=== PATIENT | female | born 1945 | race Caucasian/White ===

== ENCOUNTER 2021-03-10 21:26 | Inpatient (IN) | payer MEDICARE, BC ==
[2021-03-10] MEDS ORDERED: Ondansetron 4 MG/2 ML SDV IVPUSH ONE (21:44)
[2021-03-10] MEDS ORDERED: Sodium Chloride 0.9% 1,000 ML IV STA (21:44)
[2021-03-10] MEDS ORDERED: Sodium Chloride 0.9% 10 ML Syringe FLUSH PRN (21:44)
[2021-03-10] MEDS ORDERED: HYDROmorphone 0.5 MG/0.5 ML Syringe IVPUSH ONE ×2 (21:45→22:43)
--- NOTE | 2021-03-10 21:51 | EDM.PDOC ---
ED HPI GENERAL MEDICAL PROBLEM - General Chief Complaint: Abdominal Pain Stated Complaint: ABD PAIN Time Seen by Provider: 03/10/21 21:33 Source of Information: Reports: Patient History Limitations: Reports: No Limitations - History of Present Illness INITIAL COMMENTS - FREE TEXT/NARRATIVE: The patient presents with generalized abdominal pain, nausea and vomiting. This started this morning. The pain is constant. She has not been able to keep anything down. She has no diarrhea or dysuria. She says she feels warm. She has no cough or chest pain. She does have some shortness of breath. She has a history of COPD. She had a hysterectomy years ago. She still has her appendix and gallbladder. She did not eat any bad food and she has not been around anyone who is sick. Onset: Gradual Duration: Hour(s): Location: Reports: Abdomen Quality: Reports: Sharp Severity: Moderate Improves with: Reports: None Worsens with: Reports: None Associated Symptoms: Reports: Fever/Chills, Nausea/Vomiting, Shortness of Breath. Denies: Chest Pain, Cough, Headaches Abdomen Pain Score (Numeric/FACES): 9 - Related Data Allergies Allergy/AdvReac Type Severity Reaction Status Date / Time No Known Allergies Allergy Verified 03/10/21 21:36 Home Meds: Home Meds Acetaminophen/HYDROcodone [[place] 325-5 MG] 1 tab PO BEDTIME PRN #10 tablet 05/03/14 [Rx] Budesonide/Formoterol Fumarate [Symbicort 80-4.5 Mcg Inhaler] 0 gm IH BID 05/03/14 [History] Celecoxib [CeleBREX] 200 mg PO ASDIRECTED PRN 05/03/14 [History] Indomethacin 25 mg PO DAILY 05/03/14 [History] Sertraline [Zoloft] 50 mg PO DAILY 05/03/14 [History] allopurinoL [Zyloprim] 300 mg PO DAILY 05/03/14 [History] Past Medical History Respiratory History: Reports: COPD Musculoskeletal History: Reports: Arthritis Endocrine/Metabolic History: Reports: Hypothyroidism - Past Surgical History GI Surgical History: Reports: Hernia Repair/Other Female Surgical History: Reports: Hysterectomy Social & Family History - Tobacco Use Tobacco Use Status *Q: Former Tobacco User Used Tobacco, but Quit: Yes Month/Year Tobacco Last Used: 10 years ago - Recreational Drug Use Recreational Drug Use: No ED ROS GENERAL - Review of Systems Review Of Systems: See Below Constitutional: Reports: Fever. Denies: Chills HEENT: Reports: No Symptoms Respiratory: Reports: Shortness of Breath. Denies: Cough Cardiovascular: Reports: No Symptoms Endocrine: Reports: No Symptoms GI/Abdominal: Reports: Abdominal Pain, Nausea, Vomiting. Denies: Diarrhea : Reports: No Symptoms Musculoskeletal: Reports: No Symptoms ED EXAM, GI/ABD - Physical Exam Exam: See Below Exam Limited By: No Limitations General Appearance: Alert, No Apparent Distress Ears: Normal External Exam Nose: Normal Inspection Head: Atraumatic, Normocephalic Neck: Normal Inspection Respiratory/Chest: No Respiratory Distress, Lungs Clear, Normal Breath Sounds Cardiovascular: Regular Rate, Rhythm, No Edema, No Murmur GI/Abdominal Exam: Soft, No Organomegaly, No Mass, Tender (Moderate generalized tenderness), Abnormal Bowel Sounds (diminished) Course - Vital Signs Last Recorded V/S: Last Vital Signs Temp 96.3 F L 03/10/21 21:32 Pulse 95 03/10/21 21:32 Resp 16 03/10/21 21:32 BP 178/86 H 03/10/21 21:32 Pulse Ox 90 L 03/10/21 21:32 - Orders/Labs/Meds Orders: Active Orders 24 hr Category Date Time Status EKG Documentation Completion [RC] ASDIRECTED Care 03/10/21 23:51 Active Gastrointestinal Tube Mgmt [RC] ASDIRECTED Care 03/10/21 23:41 Active Oxygen Therapy Adult [Oxygen Therapy, ED] [RC] Care 03/10/21 22:52 Active ASDIRECTED Peripheral IV Care [RC] . DIRECTED Care 03/10/21 21:45 Active Abdomen 1V Upright [CR] Stat Exams 03/10/21 23:41 Ordered Abdomen Pelvis w Cont [CT] Stat Exams 03/10/21 21:44 Taken Chest 1V Frontal [CR] Stat Exams 03/10/21 23:41 Ordered CORONAVIRUS COVID-19 WOO [MOLEC] Stat Lab 03/10/21 23:21 Received UA W/MICROSCOPIC [URIN] Stat Lab 03/10/21 21:44 Ordered Piperacillin/Tazobactam [Piperacil-Tazobact] 4.5 gm Med 03/10/21 23:47 Active Sodium Chloride 0.9% [Normal Saline] 100 ml IV ONETIME Sodium Chloride 0.9% [Normal Saline] 100 ml Med 03/10/21 22:00 Active IV ASDIRECTED Sodium Chloride 0.9% [Saline Flush] Med 03/10/21 21:44 Active 10 ml FLUSH ASDIRECTED PRN Sodium Chloride 0.9% [Saline Flush] Med 03/10/21 22:00 Active 10 ml FLUSH BOLUS ED Antiemetic Medication Reflex [OM.PC] Stat Oth 03/10/21 21:44 Ordered NG [Nasogastric Orogastric Tube Insertion] [OM.PC] Oth 03/10/21 23:41 Ordered Routine Peripheral IV Insertion Adult [OM.PC] Stat Oth 03/10/21 21:44 Ordered EKG 12 Lead [EK] Stat Ther 03/10/21 23:51 Ordered Medication Orders Sodium Chloride (Normal Saline) 100 mls @ 60 drops/hr IV ASDIRECTED MITCHELL Last Admin: 03/10/21 23:30 Dose: 60 drops/hr Documented by: ANNMARIE Piperacillin Sod/Tazobactam (Sod 4.5 gm/ Sodium Chloride) 100 mls @ 200 mls/hr IV ONETIME ONE Stop: 03/11/21 00:16 Sodium Chloride (Sodium Chloride 0.9% 10 Ml Syringe) 10 ml FLUSH ASDIRECTED PRN PRN Reason: Keep Vein Open Last Admin: 03/10/21 21:57 Dose: 10 ml Documented by: ANTONIO Sodium Chloride (Sodium Chloride 0.9% 10 Ml Syringe) 10 ml FLUSH BOLUS [facility] Last Admin: 03/10/21 23:30 Dose: 10 ml Documented by: ANNMARIE Labs: Laboratory Tests 03/10/21 03/10/21 03/10/21 Range/Units 22:00 22:00 22:00 WBC 16.02 H (3.98-10.04) K/mm3 RBC 4.99 (3.98-5.22) M/mm3 Hgb 15.9 H (11.2-15.7) gm/dl Hct 47.7 H (34.1-44.9) % MCV 95.6 H (79.4-94.8) fl MCH 31.9 (25.6-32.2) pg MCHC 33.3 (32.2-35.5) g/dl RDW Std Deviation 47.7 H (36.4-46.3) fL Plt Count 353 (182-369) K/mm3 MPV 9.7 (9.4-12.3) fl Neut % (Auto) 87.3 H (34.0-71.1) % Lymph % (Auto) 4.4 L (19.3-51.7) % [place] % (Auto) 7.9 (4.7-12.5) % Eos % (Auto) 0.1 L (0.7-5.8) Baso % (Auto) 0.1 (0.1-1.2) % Neut # (Auto) 13.99 H (1.56-6.13) K/mm3 Lymph # (Auto) 0.70 L (1.18-3.74) K/mm3 [place] # (Auto) 1.27 H (0.24-0.36) K/mm3 Eos # (Auto) 0.01 L (0.04-0.36) K/mm3 Baso # (Auto) 0.01 (0.01-0.08) K/mm3 Manual Slide Review Abnormal smear Sodium 137 (136-145) mEq/L Potassium 3.7 (3.5-5.1) mEq/L Chloride 96 L (98-107) mEq/L Carbon Dioxide 25 (21-32) mEq/L Anion Gap 19.7 H (5-15) BUN 13 (7-18) mg/dL Creatinine 0.9 (0.55-1.02) mg/dL Est Cr Clr Drug Dosing 38.79 mL/min Estimated GFR (MDRD) > 60 (>60) mL/min BUN/Creatinine Ratio 14.4 (14-18) Glucose 178 H (70-99) mg/dL Calcium 9.4 (8.5-10.1) mg/dL Total Bilirubin 0.8 (0.2-1.0) mg/dL AST 48 H (15-37) U/L ALT 47 (14-59) U/L Alkaline Phosphatase 75 (46-116) U/L Total Protein 7.5 (6.4-8.2) g/dl Albumin 4.2 (3.4-5.0) g/dl Globulin 3.3 gm/dL Albumin/Globulin Ratio 1.3 (1-2) Lipase 1332 H (73-393) U/L Ethyl Alcohol 0.00 (0.00) gm% Meds: Medications Generic Name Dose Route Start Last Admin Trade Name Freq PRN Reason Stop Dose Admin Sodium Chloride 100 mls @ 60 drops/hr 03/10/21 22:00 03/10/21 23:30 Normal Saline IV 60 drops/hr ASDIRECTED MITCHELL Administration Piperacillin Sod/Tazobactam 100 mls @ 200 mls/hr 03/10/21 23:47 Sod 4.5 gm/ Sodium Chloride IV 03/11/21 00:16 ONETIME ONE Sodium Chloride 10 ml 03/10/21 21:44 03/10/21 21:57 Sodium Chloride 0.9% 10 Ml Syringe FLUSH 10 ml ASDIRECTED PRN Administration Keep Vein Open Sodium Chloride 10 ml 03/10/21 22:00 03/10/21 23:30 Sodium Chloride 0.9% 10 Ml Syringe FLUSH 10 ml BOLUS MITCHELL Administration Discontinued Medications Generic Name Dose Route Start Last Admin Trade Name Antwanq PRN Reason Stop Dose Admin Hydromorphone HCl 0.5 mg 03/10/21 21:45 03/10/21 21:57 Hydromorphone 0.5 Mg/0.5 Ml Syringe IVPUSH 03/10/21 21:46 0.5 mg ONETIME ONE Administration Hydromorphone HCl 0.5 mg 03/10/21 22:43 03/10/21 22:51 Hydromorphone 0.5 Mg/0.5 Ml Syringe IVPUSH 03/10/21 22:44 0.5 mg ONETIME ONE Administration Sodium Chloride 1,000 mls @ 1,000 mls/hr 03/10/21 21:44 03/10/21 21:56 Normal Saline IV 03/10/21 22:43 1,000 mls/hr .BOLUS STA Administration Iopamidol 100 ml 03/10/21 21:53 03/10/21 23:30 Iopamidol 612 Mg/Ml 100 Ml Bottle IVPUSH 03/10/21 21:54 100 ml ONETIME ONE Administration Ondansetron HCl 4 mg 03/10/21 21:44 03/10/21 21:56 Ondansetron 4 Mg/2 Ml Sdv IVPUSH 03/10/21 21:45 4 mg ONETIME ONE Administration - Re-Assessments/Exams Free Text/Narrative Re-Assessment/Exam: 03/10/21 21:51 I ordered an IV NS 500mL bolus, zofran 4mg IV, dilaudid 0.5mg IV, labs, UA and a CT of her abdomen and pelvis with IV and oral contrast. 03/10/21 22:50 Her WBC was elevated at 16.02. Her anion gap was elevated at 19.7. Her glucose was elevated at 178. Her AST is elevated at 48. Her lipase is elevated at 1332. She has more pain so I ordered dilaudid 0.5mg IV. 03/10/21 23:53 Her ETOH is 0. Her CT shows findings most consistent with a mid gut volvulus. Decreased enhancement of the wall of the cecum concerning for early ischemia. Cirrhosis. Diverticulosis without diverticulitis. I called Dr Tafoya and he will come see the patient to take her to the OR. He requested antibiotics so I ordered zosyn 4.5grams IV. Departure - Departure Time of Disposition: 23:55 Disposition: DC/Tfer to [facility] Condition: Serious Clinical Impression: Volvulus of ascending colon Pancreatitis Qualifiers: Chronicity: acute Pancreatitis type: alcohol induced Acute pancreatitis complication: no infection or necrosis Qualified Code(s): K85.20 - Alcohol induced acute pancreatitis without necrosis or infection COPD (chronic obstructive pulmonary disease) Qualifiers: COPD type: chronic bronchitis Chronic bronchitis type: simple Qualified Code(s): J41.0 - Simple chronic bronchitis - Discharge Information Referrals: Padmini Soto MD [Primary Care Provider] - Forms: ED Department Discharge Sepsis Event Note (ED) - Evaluation Sepsis Screening Result: No Definite Risk - Focused Exam Vital Signs: Vital Signs Temp Pulse Resp BP Pulse Ox 03/10/21 21:32 96.3 F L 95 16 178/86 H 90 L - My Orders Last 24 Hours: My Active Orders 03/10/21 21:44 Abdomen Pelvis w Cont [CT] Stat UA W/MICROSCOPIC [URIN] Stat Sodium Chloride 0.9% [Saline Flush] 10 ml FLUSH ASDIRECTED PRN ED Antiemetic Medication Reflex [OM.PC] Stat Peripheral IV Insertion Adult [OM.PC] Stat 03/10/21 21:45 Peripheral IV Care [RC] . DIRECTED 03/10/21 22:00 Sodium Chloride 0.9% [Normal Saline] 100 ml IV ASDIRECTED Sodium Chloride 0.9% [Saline Flush] 10 ml FLUSH BOLUS 03/10/21 22:52 Oxygen Therapy Adult [Oxygen Therapy, ED] [RC] ASDIRECTED 03/10/21 23:21 CORONAVIRUS COVID-19 WOO [MOLEC] Stat 03/10/21 23:41 Gastrointestinal Tube Mgmt [RC] ASDIRECTED Abdomen 1V Upright [CR] Stat Chest 1V Frontal [CR] Stat NG [Nasogastric Orogastric Tube Insertion] [OM.PC] Routine 03/10/21 23:47 Piperacillin/Tazobactam [Piperacil-Tazobact] 4.5 gm Sodium Chloride 0.9% [Normal Saline] 100 ml IV ONETIME 03/10/21 23:51 EKG Documentation Completion [RC] ASDIRECTED EKG 12 Lead [EK] Stat - Assessment/Plan Last 24 Hours: My Active Orders 03/10/21 21:44 Abdomen Pelvis w Cont [CT] Stat UA W/MICROSCOPIC [URIN] Stat Sodium Chloride 0.9% [Saline Flush] 10 ml FLUSH ASDIRECTED PRN ED Antiemetic Medication Reflex [OM.PC] Stat Peripheral IV Insertion Adult [OM.PC] Stat 03/10/21 21:45 Peripheral IV Care [RC] . DIRECTED 03/10/21 22:00 Sodium Chloride 0.9% [Normal Saline] 100 ml IV ASDIRECTED Sodium Chloride 0.9% [Saline Flush] 10 ml FLUSH BOLUS 03/10/21 22:52 Oxygen Therapy Adult [Oxygen Therapy, ED] [RC] ASDIRECTED 03/10/21 23:21 CORONAVIRUS COVID-19 WOO [MOLEC] Stat 03/10/21 23:41 Gastrointestinal Tube Mgmt [RC] ASDIRECTED Abdomen 1V Upright [CR] Stat Chest 1V Frontal [CR] Stat NG [Nasogastric Orogastric Tube Insertion] [OM.PC] Routine 03/10/21 23:47 Piperacillin/Tazobactam [Piperacil-Tazobact] 4.5 gm Sodium Chloride 0.9% [Normal Saline] 100 ml IV ONETIME 03/10/21 23:51 EKG Documentation Completion [RC] ASDIRECTED EKG 12 Lead [EK] Stat
[2021-03-10] MEDS ORDERED: Iopamidol 612 MG/ML 100 ML Bottle IVPUSH ONE (21:53)
[2021-03-10] MEDS ORDERED: Sodium Chloride 0.9% 100 ML IV SCH (22:00)
[2021-03-10] MEDS ORDERED: Sodium Chloride 0.9% 10 ML Syringe FLUSH SCH (22:00)
[2021-03-10] MEDS ORDERED: Piperacillin/Tazobactam 4.5 GM in Sodium Chloride 0.9% 100 ML IV ONE (23:47)
[2021-03-11] MEDS ORDERED: Albuterol 0.083% 2.5 MG/3 ML Neb Soln NEB ONE (00:11)
--- NOTE | 2021-03-11 00:13 | PCM.PREANE ---
Preanesthetic Assessment - Procedure Proposed Procedure: Exploratory laparotomy, possible bowel resection - Anesthesia/Transfusion/Family Hx Anesthesia History: Prior Anesthesia Without Reaction Family History of Anesthesia Reaction: No Transfusion History: No Prior Transfusion(s) Intubation History: Unknown - Review of Systems General: No Symptoms Pulmonary: No Symptoms (COPD/quit smoking:), Shortness of Breath, Cough (COPD) Cardiovascular: Palpitations, Dyspnea on Exertion Gastrointestinal: No Symptoms (History of pancreatitis), Abdominal Pain (5/10 abdominal pain), Nausea, Vomiting Neurological: No Symptoms Other: Reports: None, Easy Bruising, Thyroid Problems (history of hypothyroid), Depression - Physical Assessment NPO Status Date: 03/10/21 NPO Status Time: 11:30 Vital Signs: Last Vital Signs Temp 35.7 C L 03/10/21 21:32 Pulse 95 03/10/21 21:32 Resp 16 03/10/21 21:32 BP 178/86 H 03/10/21 21:32 Pulse Ox 90 L 03/10/21 21:32 Height: 1.52 m Weight: 50.802 kg ASA Class: 2E Mental Status: Alert & Oriented x3 Airway Class: Mallampati = 2 Dentition: Reports: Dentures Thyro-Mental Finger Breadths: 3 Mouth Opening Finger Breadths: 3 ROM/Head Extension: Full Lungs: Clear to Auscultation, Normal Respiratory Effort Cardiovascular: Regular Rate, Regular Rhythm, No Murmurs - Lab Values: Laboratory Last Values WBC 16.02 K/mm3 (3.98-10.04) H 03/10/21 22:00 RBC 4.99 M/mm3 (3.98-5.22) 03/10/21 22:00 Hgb 15.9 gm/dl (11.2-15.7) H 03/10/21 22:00 Hct 47.7 % (34.1-44.9) H 03/10/21 22:00 MCV 95.6 fl (79.4-94.8) H 03/10/21 22:00 MCH 31.9 pg (25.6-32.2) 03/10/21 22:00 MCHC 33.3 g/dl (32.2-35.5) 03/10/21 22:00 RDW Std Deviation 47.7 fL (36.4-46.3) H 03/10/21 22:00 Plt Count 353 K/mm3 (182-369) 03/10/21 22:00 MPV 9.7 fl (9.4-12.3) 03/10/21 22:00 Neut % (Auto) 87.3 % (34.0-71.1) H 03/10/21 22:00 Lymph % (Auto) 4.4 % (19.3-51.7) L 03/10/21 22:00 [place] % (Auto) 7.9 % (4.7-12.5) 03/10/21 22:00 Eos % (Auto) 0.1 (0.7-5.8) L 03/10/21 22:00 Baso % (Auto) 0.1 % (0.1-1.2) 03/10/21 22:00 Neut # (Auto) 13.99 K/mm3 (1.56-6.13) H 03/10/21 22:00 Lymph # (Auto) 0.70 K/mm3 (1.18-3.74) L 03/10/21 22:00 [place] # (Auto) 1.27 K/mm3 (0.24-0.36) H 03/10/21 22:00 Eos # (Auto) 0.01 K/mm3 (0.04-0.36) L 03/10/21 22:00 Baso # (Auto) 0.01 K/mm3 (0.01-0.08) 03/10/21 22:00 Manual Slide Review Abnormal smear 03/10/21 22:00 Sodium 137 mEq/L (136-145) 03/10/21 22:00 Potassium 3.7 mEq/L (3.5-5.1) 03/10/21 22:00 Chloride 96 mEq/L (98-107) L 03/10/21 22:00 Carbon Dioxide 25 mEq/L (21-32) 03/10/21 22:00 Anion Gap 19.7 (5-15) H 03/10/21 22:00 BUN 13 mg/dL (7-18) 03/10/21 22:00 Creatinine 0.9 mg/dL (0.55-1.02) 03/10/21 22:00 Est Cr Clr Drug Dosing 38.79 mL/min 03/10/21 22:00 Estimated GFR (MDRD) > 60 mL/min (>60) 03/10/21 22:00 BUN/Creatinine Ratio 14.4 (14-18) 03/10/21 22:00 Glucose 178 mg/dL (70-99) H 03/10/21 22:00 Calcium 9.4 mg/dL (8.5-10.1) 03/10/21 22:00 Total Bilirubin 0.8 mg/dL (0.2-1.0) 03/10/21 22:00 AST 48 U/L (15-37) H 03/10/21 22:00 ALT 47 U/L (14-59) 03/10/21 22:00 Alkaline Phosphatase 75 U/L (46-116) 03/10/21 22:00 Total Protein 7.5 g/dl (6.4-8.2) 03/10/21 22:00 Albumin 4.2 g/dl (3.4-5.0) 03/10/21 22:00 Globulin 3.3 gm/dL 03/10/21 22:00 Albumin/Globulin Ratio 1.3 (1-2) 03/10/21 22:00 Lipase 1332 U/L (73-393) H 03/10/21 22:00 Ethyl Alcohol 0.00 gm% (0.00) 03/10/21 22:00 Above labs reviewed and noted and within acceptable ranges to proceed with surgery. - Imaging/EKG Impressions: EKG:ST wptn=964, probable LAE, minimal st depression lateral leads CXR: - Allergies Allergies/Adverse Reactions: Allergies Allergy/AdvReac Type Severity Reaction Status Date / Time No Known Allergies Allergy Verified 03/10/21 21:36 - Anesthesia Plan Pre-Op Medication Ordered: None - Acknowledgements Anesthesia Type Planned: General Anesthesia Pt an Appropriate Candidate for the Planned Anesthesia: Yes Alternatives and Risks of Anesthesia Discussed w Pt/Guardian: Yes Pt/Guardian Understands and Agrees with Anesthesia Plan: Yes PreAnesthesia Questionnaire Respiratory History: Reports: COPD Musculoskeletal History: Reports: Arthritis Endocrine/Metabolic History: Reports: Hypothyroidism - Past Surgical History GI Surgical History: Reports: Hernia Repair/Other Female Surgical History: Reports: Hysterectomy - SUBSTANCE USE Tobacco Use Status *Q: Former Tobacco User Recreational Drug Use History: No - HOME MEDS Home Medications: Home Meds allopurinoL [Zyloprim] 100 mg PO DAILY 05/03/14 [History] Venlafaxine HCl [Venlafaxine ER] 75 mg PO DAILY 03/11/21 [History] - CURRENT (IN HOUSE) MEDS Current Meds: Current Medications Sodium Chloride (Normal Saline) 100 mls @ 60 drops/hr IV ASDIRECTED MITCHELL Last Admin: 03/10/21 23:30 Dose: 60 drops/hr Documented by: Piperacillin Sod/Tazobactam (Sod 4.5 gm/ Sodium Chloride) 100 mls @ 200 mls/hr IV ONETIME ONE Stop: 03/11/21 00:16 Last Admin: 03/11/21 00:00 Dose: 200 mls/hr Documented by: Sodium Chloride (Sodium Chloride 0.9% 10 Ml Syringe) 10 ml FLUSH ASDIRECTED PRN PRN Reason: Keep Vein Open Last Admin: 03/10/21 21:57 Dose: 10 ml Documented by: Sodium Chloride (Sodium Chloride 0.9% 10 Ml Syringe) 10 ml FLUSH BOLUS MITCHELL Last Admin: 03/10/21 23:30 Dose: 10 ml Documented by: Discontinued Medications Hydromorphone HCl (Hydromorphone 0.5 Mg/0.5 Ml Syringe) 0.5 mg IVPUSH ONETIME ONE Stop: 03/10/21 21:46 Last Admin: 03/10/21 21:57 Dose: 0.5 mg Documented by: Hydromorphone HCl (Hydromorphone 0.5 Mg/0.5 Ml Syringe) 0.5 mg IVPUSH ONETIME ONE Stop: 03/10/21 22:44 Last Admin: 03/10/21 22:51 Dose: 0.5 mg Documented by: Sodium Chloride (Normal Saline) 1,000 mls @ 1,000 mls/hr IV .BOLUS STA Stop: 03/10/21 22:43 Last Admin: 03/10/21 21:56 Dose: 1,000 mls/hr Documented by: Iopamidol (Iopamidol 612 Mg/Ml 100 Ml Bottle) 100 ml IVPUSH ONETIME ONE Stop: 03/10/21 21:54 Last Admin: 03/10/21 23:30 Dose: 100 ml Documented by: Ondansetron HCl (Ondansetron 4 Mg/2 Ml Sdv) 4 mg IVPUSH ONETIME ONE Stop: 03/10/21 21:45 Last Admin: 03/10/21 21:56 Dose: 4 mg Documented by:
[2021-03-11] MEDS ORDERED: Rocuronium 50 MG/5 ML Vial ONE (00:32)
[2021-03-11] MEDS ORDERED: Lidocaine 1% 4 ML ONE (00:32)
[2021-03-11] MEDS ORDERED: Propofol 200 MG/20 ML SDV ONE (00:32)
[2021-03-11] MEDS ORDERED: Dexamethasone 4 MG/ML 5 ML MDV ONE (00:32)
[2021-03-11] MEDS ORDERED: Ondansetron 4 MG/2 ML SDV ONE (00:32)
[2021-03-11] MEDS ORDERED: Lactated Ringers 2,000 ML ONE (00:32)
[2021-03-11] MEDS ORDERED: fentaNYL 250 MCG/5 ML SDV ONE (00:33)
[2021-03-11] MEDS ORDERED: Bupivacaine 0.5%/EPINEPHrine 1:200,000 50 ML MDV ONE (00:45)
[2021-03-11] MEDS ORDERED: Lidocaine 1% with EPINEPHrine 1:100,000 10 ML MDV ONE (00:45)
--- NOTE | 2021-03-11 00:48 | PCM.HP.2 ---
H&P History of Present Illness - General Date of Service: 03/11/21 Admit Problem/Dx: Admission Diagnosis/Problem Admission Diagnosis/Problem Volvulus of colon Source of Information: Patient History Limitations: Reports: No Limitations - History of Present Illness Initial Comments - Free Text/Narative: Patient was doing well until yesterday afternoon about 2Pm when she started having abdominal cramping. The pain was diffuse, and kept getting worse. Then she became nauseated and started to vomit. She felt quite bloated. This is what prompted her to come to the emergence department. She had a small BM today. She quit smoking 10 yrs ago but comsumes about 4 shots of alcohol daily. She reports that her last drink was Thursday. She has no tremors at this time. She reports t hat she has COPD but able to do house chores, walking without problems. has two inhalers. Has bilateral inguinal hernia repairs in the past as well as C/sections. She also had an epigastric hernia repair. Onset of Symptoms: Reports: Sudden Duration of Symptoms: Reports: Hour(s): (10), Constant, Getting Worse Quality: Reports: Ache Severity: Severe Improves with: Reports: None Worsens with: Reports: None Abdomen Pain Score (Numeric/FACES): 9 - Related Data Allergies/Adverse Reactions: Allergies Allergy/AdvReac Type Severity Reaction Status Date / Time No Known Allergies Allergy Verified 03/10/21 21:36 Home Medications: Home Meds allopurinoL [Zyloprim] 100 mg PO DAILY 05/03/14 [History] Past Medical History Respiratory History: Reports: COPD Musculoskeletal History: Reports: Arthritis Endocrine/Metabolic History: Reports: Hypothyroidism - Past Surgical History GI Surgical History: Reports: Hernia Repair/Other Female Surgical History: Reports: Hysterectomy Social & Family History - Tobacco Use Tobacco Use Status *Q: Former Tobacco User Used Tobacco, but Quit: Yes Month/Year Tobacco Last Used: 10 years ago - Recreational Drug Use Recreational Drug Use: No H&P Review of Systems - Review of Systems: Review Of Systems: See Below General: Reports: No Symptoms HEENT: Reports: No Symptoms Pulmonary: Reports: No Symptoms Cardiovascular: Reports: No Symptoms Gastrointestinal: Reports: Abdominal Pain Genitourinary: Reports: No Symptoms Musculoskeletal: Reports: No Symptoms, Joint Pain (due to gout) Skin: Reports: No Symptoms Exam - Exam Exam: See Below - Vital Signs Vital Signs: Last Vital Signs Temp 96.3 F L 03/10/21 21:32 Pulse 95 03/10/21 21:32 Resp 16 03/10/21 21:32 BP 178/86 H 03/10/21 21:32 Pulse Ox 89 L 03/11/21 00:24 Weight: 50.802 kg - Exam General: Alert, Oriented, Cooperative Lungs: Clear to Auscultation, Normal Respiratory Effort Cardiovascular: Regular Rate, Regular Rhythm, Normal S1, Normal S2 GI/Abdominal Exam: Distended, Tender, Other (tympanic) - Patient Data Lab Results Last 24 hrs: Laboratory Results - last 24 hr 03/10/21 03/10/21 03/10/21 Range/Units 22:00 22:00 22:00 WBC 16.02 H (3.98-10.04) K/mm3 RBC 4.99 (3.98-5.22) M/mm3 Hgb 15.9 H (11.2-15.7) gm/dl Hct 47.7 H (34.1-44.9) % MCV 95.6 H (79.4-94.8) fl MCH 31.9 (25.6-32.2) pg MCHC 33.3 (32.2-35.5) g/dl RDW Std Deviation 47.7 H (36.4-46.3) fL Plt Count 353 (182-369) K/mm3 MPV 9.7 (9.4-12.3) fl Neut % (Auto) 87.3 H (34.0-71.1) % Lymph % (Auto) 4.4 L (19.3-51.7) % Shannon % (Auto) 7.9 (4.7-12.5) % Eos % (Auto) 0.1 L (0.7-5.8) Baso % (Auto) 0.1 (0.1-1.2) % Neut # (Auto) 13.99 H (1.56-6.13) K/mm3 Lymph # (Auto) 0.70 L (1.18-3.74) K/mm3 Shannon # (Auto) 1.27 H (0.24-0.36) K/mm3 Eos # (Auto) 0.01 L (0.04-0.36) K/mm3 Baso # (Auto) 0.01 (0.01-0.08) K/mm3 Manual Slide Review Abnormal smear Sodium 137 (136-145) mEq/L Potassium 3.7 (3.5-5.1) mEq/L Chloride 96 L (98-107) mEq/L Carbon Dioxide 25 (21-32) mEq/L Anion Gap 19.7 H (5-15) BUN 13 (7-18) mg/dL Creatinine 0.9 (0.55-1.02) mg/dL Est Cr Clr Drug Dosing 38.79 mL/min Estimated GFR (MDRD) > 60 (>60) mL/min BUN/Creatinine Ratio 14.4 (14-18) Glucose 178 H (70-99) mg/dL Calcium 9.4 (8.5-10.1) mg/dL Total Bilirubin 0.8 (0.2-1.0) mg/dL AST 48 H (15-37) U/L ALT 47 (14-59) U/L Alkaline Phosphatase 75 (46-116) U/L Total Protein 7.5 (6.4-8.2) g/dl Albumin 4.2 (3.4-5.0) g/dl Globulin 3.3 gm/dL Albumin/Globulin Ratio 1.3 (1-2) Lipase 1332 H (73-393) U/L Ethyl Alcohol 0.00 (0.00) gm% SARS-CoV-2 RNA (WOO) (NEGATIVE) 03/10/21 Range/Units 23:21 WBC (3.98-10.04) K/mm3 RBC (3.98-5.22) M/mm3 Hgb (11.2-15.7) gm/dl Hct (34.1-44.9) % MCV (79.4-94.8) fl MCH (25.6-32.2) pg MCHC (32.2-35.5) g/dl RDW Std Deviation (36.4-46.3) fL Plt Count (182-369) K/mm3 MPV (9.4-12.3) fl Neut % (Auto) (34.0-71.1) % Lymph % (Auto) (19.3-51.7) % Shannon % (Auto) (4.7-12.5) % Eos % (Auto) (0.7-5.8) Baso % (Auto) (0.1-1.2) % Neut # (Auto) (1.56-6.13) K/mm3 Lymph # (Auto) (1.18-3.74) K/mm3 Shannon # (Auto) (0.24-0.36) K/mm3 Eos # (Auto) (0.04-0.36) K/mm3 Baso # (Auto) (0.01-0.08) K/mm3 Manual Slide Review Sodium (136-145) mEq/L Potassium (3.5-5.1) mEq/L Chloride (98-107) mEq/L Carbon Dioxide (21-32) mEq/L Anion Gap (5-15) BUN (7-18) mg/dL Creatinine (0.55-1.02) mg/dL Est Cr Clr Drug Dosing mL/min Estimated GFR (MDRD) (>60) mL/min BUN/Creatinine Ratio (14-18) Glucose (70-99) mg/dL Calcium (8.5-10.1) mg/dL Total Bilirubin (0.2-1.0) mg/dL AST (15-37) U/L ALT (14-59) U/L Alkaline Phosphatase (46-116) U/L Total Protein (6.4-8.2) g/dl Albumin (3.4-5.0) g/dl Globulin gm/dL Albumin/Globulin Ratio (1-2) Lipase (73-393) U/L Ethyl Alcohol (0.00) gm% SARS-CoV-2 RNA (WOO) Negative (NEGATIVE) Result Diagrams: 03/10/21 22:00 03/10/21 22:00 Sepsis Event Note - Evaluation Sepsis Screening Result: No Definite Risk - Focused Exam Vital Signs: Vital Signs Temp Pulse Resp BP Pulse Ox Pulse Ox 03/11/21 00:24 89 L 03/10/21 21:32 96.3 F L 95 16 178/86 H 90 L Problem List Initiated/Reviewed/Updated: No Orders Last 24hrs: Active Orders 24 hr Category Date Time Status Patient Status [ADT] Routine ADT 03/11/21 00:36 Active EKG Documentation Completion [RC] ASDIRECTED Care 03/10/21 23:51 Active Gastrointestinal Tube Mgmt [RC] ASDIRECTED Care 03/10/21 23:41 Active Oxygen Therapy Adult [Oxygen Therapy, ED] [RC] Care 03/10/21 22:52 Active ASDIRECTED Peripheral IV Care [RC] . DIRECTED Care 03/10/21 21:45 Active RT Aerosol Therapy [RC] ASDIRECTED Care 03/11/21 00:11 Active Abdomen 1V Upright [CR] Stat Exams 03/10/21 23:41 Ordered Abdomen Pelvis w Cont [CT] Stat Exams 03/10/21 21:44 Taken Chest 1V Frontal [CR] Stat Exams 03/10/21 23:41 Ordered INR,PT,PROTHROMBIN TIME [COAG] Stat Lab 03/11/21 00:29 Ordered LACTIC ACID [CHEM] Stat Lab 03/11/21 00:28 Ordered UA W/MICROSCOPIC [URIN] Stat Lab 03/10/21 21:44 Ordered Sodium Chloride 0.9% [Normal Saline] 100 ml Med 03/10/21 22:00 Active IV ASDIRECTED Sodium Chloride 0.9% [Saline Flush] Med 03/10/21 21:44 Active 10 ml FLUSH ASDIRECTED PRN Sodium Chloride 0.9% [Saline Flush] Med 03/10/21 22:00 Active 10 ml FLUSH BOLUS ED Antiemetic Medication Reflex [OM.PC] Stat Oth 03/10/21 21:44 Ordered NG [Nasogastric Orogastric Tube Insertion] [OM.PC] Oth 03/10/21 23:41 Ordered Routine Peripheral IV Insertion Adult [OM.PC] Stat Oth 03/10/21 21:44 Ordered Schedule Procedure [COMM] Stat Oth 03/11/21 00:36 Ordered EKG 12 Lead [EK] Stat Ther 03/10/21 23:51 Ordered Medication Orders Sodium Chloride (Normal Saline) 100 mls @ 60 drops/hr IV ASDIRECTED MIT[facility]LL Last Admin: 03/10/21 23:30 Dose: 60 drops/hr Documented by: ANNMARIE Sodium Chloride (Sodium Chloride 0.9% 10 Ml Syringe) 10 ml FLUSH ASDIRECTED PRN PRN Reason: Keep Vein Open Last Admin: 03/10/21 21:57 Dose: 10 ml Documented by: ANTONIO Sodium Chloride (Sodium Chloride 0.9% 10 Ml Syringe) 10 ml FLUSH BOLUS [facility] Last Admin: 03/10/21 23:30 Dose: 10 ml Documented by: ANNMARIE Assessment/Plan Comment:: 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 In any case, I recommended emergent surgery to explore the abdomen, detorse the bowel and evaluate the problem. I discussed with her risks, benefits and alt ernatives. Risks for her includes but not limited to cardiac and pulm issues, bleeding, liver failure, infection, prolonged intubation or need for oxygen, injury to adjacent structures. Patient verbalized understanding and informed consent was obtained. Plan: ex lap, possible bowel resection, possible ostomy, with other indicated procedures. Informed consent was obtained.
[2021-03-11] MEDS ORDERED: diphenhydrAMINE 50 MG/ML SDV IVPUSH PRN (01:24)
[2021-03-11] MEDS ORDERED: fentaNYL 100 MCG/2 ML SDV IVPUSH PRN (01:24)
[2021-03-11] MEDS ORDERED: HYDROmorphone 0.5 MG/0.5 ML Syringe IVPUSH PRN (01:24)
[2021-03-11] MEDS ORDERED: ePHEDrine 50 MG/ML SDV IVPUSH PRN (01:24)
[2021-03-11] MEDS ORDERED: Albuterol 0.083% 2.5 MG/3 ML Neb Soln NEB PRN (01:24)
[2021-03-11] MEDS ORDERED: HYDROmorphone 0.5 MG/0.5 ML Syringe ONE (01:42)
[2021-03-11] MEDS ORDERED: Glycopyrrolate 0.2 MG/ML SDV ONE (01:44)
[2021-03-11] MEDS ORDERED: Lactated Ringers 1,000 ML ONE (02:27)
[2021-03-11] MEDS ORDERED: ePHEDrine 50 MG/ML SDV ONE (02:30)
[2021-03-11] MEDS ORDERED: Labetalol 100 MG/20 ML MDV ONE (02:53)
[2021-03-11] MEDS ORDERED: Bacitracin Oint 15 GM Tube ONE (03:03)
[2021-03-11] MEDS ORDERED: Ondansetron 4 MG/2 ML SDV IVPUSH PRN (03:17)
--- NOTE | 2021-03-11 03:28 | PCM.POSTAN ---
POST ANESTHESIA ASSESSMENT - MENTAL STATUS Mental Status: Alert - VITAL SIGNS Vital Signs: Last Vital Signs Temp 36.3 C 03/11/21 03:15 Pulse 82 03/11/21 03:15 Resp 22 H 03/11/21 03:15 BP 124/59 L 03/11/21 03:15 Pulse Ox 98 03/11/21 03:15 - RESPIRATORY Respiratory Status: Respiratory Rate WNL, Airway Patent, O2 Saturation Stable, Supplemental Oxygen - CARDIOVASCULAR CV Status: Pulse Rate WNL, Blood Pressure Stable - GASTROINTESTINAL GI Status: No Symptoms - POST OP HYDRATION Hydration Status: Adequate & Stable
--- NOTE | 2021-03-11 04:17 | OR ---
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 OPERATION PERFORMED: Exploratory laparotomy, extended right hemicolectomy and abdominal washout. ANESTHESIA: General endotracheal. ESTIMATED BLOOD LOSS: 25 mL. FINDINGS: Cecal volvulus with cecum, ascending as well as proximal transverse colonic ischemia as well as terminal ileal ischemia. NEED FOR ASSISTANCE: Skilled assistance of our nurse practitioner Alyssa Mancera CNP was needed in this case. She assisted with patient preparation, retraction of abdominal organs, abdominal washout and incision closure. INDICATION AND CONSENT: Ms. Narayan is a 75-year-old female who started having crampy abdominal pain yesterday afternoon. The pain got worse. Patient became nauseated and vomited. She presented to the hospital. In the hospital, labs were significant for white count of 16, lipase of 1300. CT scan revealed concerns for midgut volvulus. I was asked to see the patient. I saw the patient and recommended emergent exploratory laparotomy. I discussed with the patient risks, benefits, and alternatives. Informed consent was obtained. DESCRIPTION OF PROCEDURE: The patient received Zosyn in the preop area. Then, we proceeded to the operating room. She was placed in supine position. She was padded appropriately. A Brock catheter was placed. NG tube was placed and general endotracheal anesthesia was induced. Then, the abdomen was prepped and draped in the usual sterile fashion. We performed a time-out before the start of the procedure. We began the procedure by making a midline laparotomy using initially a scalpel and then cautery. Abdomen was entered without any injuries. Immediately, we encountered bloody ascites. This was suctioned about 400 mL. Then, we inspected the abdomen. There was certainly a large boggy cecum. The cecum was necrotic but not perforated and very distended. There was a clear cecal volvulus with twisting of the ascending mesocolon. Cecum was in the right upper quadrant.The cecum as well as ascending colon, proximal transverse colon were externalized. These were areas that were extremely distended and hyperemic. Inspection showed that the ischemic bowel extended to the proximal transverse colon where there was a sharp dermacation between the normal and ischemic bowel. the terminal ileum was also compromised with a dermacation about 30 cm distal to the cecum. A decision was made to proceed with transection of ischemic and compromised bowel. The proximal transverse colon was transected with a blue load using linear JAVI stapler. The terminal ileum was also transected with blue load using linear JAVI stapler. The intervening mesentery was then divided using hand-held LigaSure device. The entire specimen was passed off for pathologic examination. Then the abdomen was irrigated with 2 L of warm saline. Once this was done, bowel was ran from the ligament of Treitz to the transaction margin and inspected the stomach. The stomach appeared normal along with the rest of the bowel. The was no additional twisting. The duodenum appeared to be crossing the midline to the right side and coming back to the left in the normal anatomic location posterior to the superior mesenteric artery. I was able to trace the duodenum as it goes under the mesenteric artery. I palpated the mesenteric artery, which was palpable, had a good pulse. The entire jejunum as well as the rest of the ileum appeared normal. Distal ileum appears slightly hyperemic, but entirely viable. Therefore, all the severely hyperemic portion of the ileum was removed along with the cecum, ascending colon and proximal transverse colon. These areas had no attachments to the lateral abdomen. Once this was done, an irrigation was done. We proceeded with ileocolonic anastomosis, which was fashioned in a [id number] fashion using 55 blue load using linear JAVI stapler. The common enterotomy was closed using 3-0 Vicryl stitch in a running fashion. This common enterotomy was imbricated with 3-0 silk Lembert stitches. Once this was done, the anastomosis appeared to be well. It was placed back into the abdomen, and at this point, the small bowel was again inspected and appeared to be still viable and no new changes. We proceeded with closure of the fascia which was closed with 0 PDS stitch and the skin was reapproximated with dmitriy after copious irrigation. This marked the end of the procedure. At the end of the procedure, all instruments, sharps, and sponges were counted and found to be correct x2. The patient was awoken, extubated, and taken to the PACU in stable condition. The patient to be monitored in the hospital for recovery. MMODAL /[id number] LEAH
--- NOTE | 2021-03-11 07:49 | CR ---
Chest: Portable view of the chest was obtained. Comparison: Prior chest x-ray 06/29/13. Lungs are hyperinflated compatible with emphysematous change. Endotracheal tube is seen lying midway between the clavicle and rasta which appears within satisfactory position. Nasogastric tube is seen with tip lying within the stomach. Lungs are clear with no acute parenchymal change. Mild scoliosis is noted within the spine. No definite acute osseous abnormality is appreciated. Impression: 1. Endotracheal tube and nasogastric tube which are satisfactory in position. 2. Emphysematous change. 3. Nothing acute is otherwise seen. Diagnostic code #1
--- NOTE | 2021-03-11 07:51 | CR ---
Abdomen: Upright view centered to the diaphragmatic junction is seen. Comparison: Prior abdominal x-ray performed on 03/10/21. Dilated loop of colon is seen extending into the left upper abdomen. Endotracheal tube is seen with tip located above the rasta. Nasogastric tube is noted with tip lying within the stomach. No free air is seen. Heart size and mediastinum are normal. No acute parenchymal change is seen. Scoliosis is noted within the spine. Impression: 1. Dilated loop of colon within the left upper abdomen compatible with sigmoid volvulus. 2. Satisfactory position of nasogastric tube and endotracheal tube. 3. No other acute abnormality is appreciated. Diagnostic code #3
[2021-03-11] MEDS: Acetaminophen/oxyCODONE 325-5 MG Tab PO PRN ×4 (08:09→20:30)
[2021-03-11] MEDS: Allopurinol 100 MG Tab PO SCH (08:09)
[2021-03-11] MEDS: Tiotropium Bromide 4 GM Inhalation Spray (2.5mcg/1 dose; 10 doses) INH SCH (08:09)
[2021-03-11] MEDS: Famotidine 20 MG/2 ML SDV IVPUSH SCH ×2 (08:10→20:20)
--- NOTE | 2021-03-11 08:10 | CT ---
CT abdomen and pelvis Technique: Multiple axial sections were obtained from above the dome of the diaphragm inferiorly through the pubic symphysis. Intravenous and oral contrast was utilized. Reconstructed coronal and sagittal images were obtained. Delayed images were also obtained through the abdomen and pelvis. Comparison: Prior CT abdomen and pelvis exam of 04/26/13. Findings: Dilated sigmoid colon is seen which heads into the right upper abdomen. Stool is noted within this loop of the bowel. Distal portion of small bowel does not appear dilated. These findings are compatible with sigmoid volvulus. Small amount of ascites is seen within the upper abdomen and within the pelvis. Slight density within the left lung base is seen which most likely represents a small area of scarring. Minimal atelectasis or scarring is seen within the right lung base. Small calcification is seen within the liver most likely representing a granuloma. Liver shows no additional abnormality by CT exam. Spleen size is normal. Adrenal glands show no nodule. Pancreas shows no discrete abnormality. Gallbladder contains no calcified gallstones. Kidneys show symmetric contrast enhancement. Cyst is noted within the right kidney which measures 3.5 cm. Small extrarenal pelvis is noted within the right kidney. No ureteral dilatation is seen. Diffuse atherosclerotic change is seen within the thoracic aorta. No aneurysm is seen. No retroperitoneal adenopathy or mesenteric abnormalities are seen. Diffuse diverticulosis is noted within the descending sigmoid regions. Appendix is not definitely visualized. No inflammatory change is appreciated. Delayed images show contrast within the left ureter and bladder. Bone window settings were obtained which show severe disc space narrowing at L5-S1 with mild spondylolisthesis due to degenerative apophyseal change. Slight scoliosis is noted as well as other minimal degenerative change. Impression: 1. Findings compatible with sigmoid volvulus. 2. Ascites within the abdomen and pelvis which is mild in amount. 3. Prominent diverticulosis without diverticulitis within the sigmoid colon and descending colon. 4. Other findings which are likely incidental as noted above. Diagnostic code #3 I minimally disagree with preliminary report from [facility] finalized on 03/11/21, 12:43 AM CDT, code 2
[2021-03-11] MEDS: Lactated Ringers 1,000 ML IV SCH ×2 (08:15→16:25)
[2021-03-11] MEDS ORDERED: Famotidine 20 MG/2 ML SDV IVPUSH SCH (09:00)
[2021-03-11] MEDS ORDERED: Formoterol/Mometasone 200-5 MCG 8.8 GM Inhaler IH SCH (10:00)
--- NOTE | 2021-03-11 10:40 | PCM.PN ---
- General Info Date of Service: 03/11/21 Admission Dx/Problem (Free Text): Admission Diagnosis/Problem Admission Diagnosis/Problem Volvulus of colon Subjective Update: Patient feels well this AM. She is sitting in bed. has some pain, needs supplemental oxygen. Functional Status: Reports: Pain Controlled, Tolerating Diet (clears) - Review of Systems General: Reports: No Symptoms HEENT: Reports: No Symptoms Pulmonary: Reports: No Symptoms Cardiovascular: Reports: No Symptoms Gastrointestinal: Reports: Abdominal Pain (post op) Genitourinary: Reports: No Symptoms Musculoskeletal: Reports: No Symptoms Skin: Reports: No Symptoms - Patient Data Vitals - Most Recent: Last Vital Signs Temp 98.6 F 03/11/21 08:00 Pulse 77 03/11/21 04:05 Resp 20 03/11/21 08:00 BP 116/54 L 03/11/21 08:00 Pulse Ox 93 L 03/11/21 08:56 Weight - Most Recent: 53.66 kg I&O - Last 24 Hours: Intake & Output 03/10/21 03/11/21 03/11/21 22:59 06:59 14:59 Intake Total 700 Output Total 45 15% Balance 25@ -15% Lab Results Last 24 Hours: Laboratory Results - last 24 hr 03/10/21 03/10/21 03/10/21 Range/Units 22:00 22:00 22:00 WBC 16.02 H (3.98-10.04) K/mm3 RBC 4.99 (3.98-5.22) M/mm3 Hgb 15.9 H (11.2-15.7) gm/dl Hct 47.7 H (34.1-44.9) % MCV 95.6 H (79.4-94.8) fl MCH 31.9 (25.6-32.2) pg MCHC 33.3 (32.2-35.5) g/dl RDW Std Deviation 47.7 H (36.4-46.3) fL Plt Count 353 (182-369) K/mm3 MPV 9.7 (9.4-12.3) fl Neut % (Auto) 87.3 H (34.0-71.1) % Lymph % (Auto) 4.4 L (19.3-51.7) % [place] % (Auto) 7.9 (4.7-12.5) % Eos % (Auto) 0.1 L (0.7-5.8) Baso % (Auto) 0.1 (0.1-1.2) % Neut # (Auto) 13.99 H (1.56-6.13) K/mm3 Lymph # (Auto) 0.70 L (1.18-3.74) K/mm3 [place] # (Auto) 1.27 H (0.24-0.36) K/mm3 Eos # (Auto) 0.01 L (0.04-0.36) K/mm3 Baso # (Auto) 0.01 (0.01-0.08) K/mm3 Manual Slide Review Abnormal smear PT (9.7-12.0) SECONDS INR Sodium 137 (136-145) mEq/L Potassium 3.7 (3.5-5.1) mEq/L Chloride 96 L (98-107) mEq/L Carbon Dioxide 25 (21-32) mEq/L Anion Gap 19.7 H (5-15) BUN 13 (7-18) mg/dL Creatinine 0.9 (0.55-1.02) mg/dL Est Cr Clr Drug Dosing 38.79 mL/min Estimated GFR (MDRD) > 60 (>60) mL/min BUN/Creatinine Ratio 14.4 (14-18) Glucose 178 H (70-99) mg/dL Lactic Acid (0.4-2.0) mmol/L Calcium 9.4 (8.5-10.1) mg/dL Total Bilirubin 0.8 (0.2-1.0) mg/dL AST 48 H (15-37) U/L ALT 47 (14-59) U/L Alkaline Phosphatase 75 (46-116) U/L Total Protein 7.5 (6.4-8.2) g/dl Albumin 4.2 (3.4-5.0) g/dl Globulin 3.3 gm/dL Albumin/Globulin Ratio 1.3 (1-2) Lipase 1332 H (73-393) U/L Urine Color (Yellow) Urine Appearance (Clear) Urine pH (5.0-8.0) Ur Specific [place] (1.005-1.030) Urine Protein (Negative) Urine Glucose (UA) (Negative) Urine Ketones (Negative) Urine Occult Blood (Negative) Urine Nitrite (Negative) Urine Bilirubin (Negative) Urine Urobilinogen (0.2-1.0) Ur Leukocyte Esterase (Negative) U Hyaline Cast (Auto) (0-5) /lpf Urine RBC (0-5) /hpf Urine WBC (0-5) /hpf Ur Squamous Epith Cells (0-5) /hpf Amorphous Sediment (NOT SEEN) /hpf Urine Bacteria (FEW) /hpf Urine Mucus (FEW) /hpf Ethyl Alcohol 0.00 (0.00) gm% SARS-CoV-2 RNA (WOO) (NEGATIVE) 03/10/21 03/11/21 03/11/21 Range/Units 23:21 00:40 00:40 WBC (3.98-10.04) K/mm3 RBC (3.98-5.22) M/mm3 Hgb (11.2-15.7) gm/dl Hct (34.1-44.9) % MCV (79.4-94.8) fl MCH (25.6-32.2) pg MCHC (32.2-35.5) g/dl RDW Std Deviation (36.4-46.3) fL Plt Count (182-369) K/mm3 MPV (9.4-12.3) fl Neut % (Auto) (34.0-71.1) % Lymph % (Auto) (19.3-51.7) % [place] % (Auto) (4.7-12.5) % Eos % (Auto) (0.7-5.8) Baso % (Auto) (0.1-1.2) % Neut # (Auto) (1.56-6.13) K/mm3 Lymph # (Auto) (1.18-3.74) K/mm3 [place] # (Auto) (0.24-0.36) K/mm3 Eos # (Auto) (0.04-0.36) K/mm3 Baso # (Auto) (0.01-0.08) K/mm3 Manual Slide Review PT 10.9 (9.7-12.0) SECONDS INR 1.02 Sodium (136-145) mEq/L Potassium (3.5-5.1) mEq/L Chloride (98-107) mEq/L Carbon Dioxide (21-32) mEq/L Anion Gap (5-15) BUN (7-18) mg/dL Creatinine (0.55-1.02) mg/dL Est Cr Clr Drug Dosing mL/min Estimated GFR (MDRD) (>60) mL/min BUN/Creatinine Ratio (14-18) Glucose (70-99) mg/dL Lactic Acid 1.0 (0.4-2.0) mmol/L Calcium (8.5-10.1) mg/dL Total Bilirubin (0.2-1.0) mg/dL AST (15-37) U/L ALT (14-59) U/L Alkaline Phosphatase (46-116) U/L Total Protein (6.4-8.2) g/dl Albumin (3.4-5.0) g/dl Globulin gm/dL Albumin/Globulin Ratio (1-2) Lipase (73-393) U/L Urine Color (Yellow) Urine Appearance (Clear) Urine pH (5.0-8.0) Ur Specific [place] (1.005-1.030) Urine Protein (Negative) Urine Glucose (UA) (Negative) Urine Ketones (Negative) Urine Occult Blood (Negative) Urine Nitrite (Negative) Urine Bilirubin (Negative) Urine Urobilinogen (0.2-1.0) Ur Leukocyte Esterase (Negative) U Hyaline Cast (Auto) (0-5) /lpf Urine RBC (0-5) /hpf Urine WBC (0-5) /hpf Ur Squamous Epith Cells (0-5) /hpf Amorphous Sediment (NOT SEEN) /hpf Urine Bacteria (FEW) /hpf Urine Mucus (FEW) /hpf Ethyl Alcohol (0.00) gm% SARS-CoV-2 RNA (WOO) Negative (NEGATIVE) 03/11/21 03/11/21 03/11/21 Range/Units 01:24 05:45 05:45 WBC 15.65 H (3.98-10.04) K/mm3 RBC 4.17 (3.98-5.22) M/mm3 Hgb 13.4 D (11.2-15.7) gm/dl Hct 40.8 (34.1-44.9) % MCV 97.8 H (79.4-94.8) fl MCH 32.1 (25.6-32.2) pg MCHC 32.8 (32.2-35.5) g/dl RDW Std Deviation 48.5 H (36.4-46.3) fL Plt Count 304 (182-369) K/mm3 MPV 10.0 (9.4-12.3) fl Neut % (Auto) 93.3 H (34.0-71.1) % Lymph % (Auto) 1.2 L (19.3-51.7) % [place] % (Auto) 5.3 (4.7-12.5) % Eos % (Auto) 0 L (0.7-5.8) Baso % (Auto) 0.1 (0.1-1.2) % Neut # (Auto) 14.61 H (1.56-6.13) K/mm3 Lymph # (Auto) 0.18 L (1.18-3.74) K/mm3 [place] # (Auto) 0.83 H (0.24-0.36) K/mm3 Eos # (Auto) 0.00 L (0.04-0.36) K/mm3 Baso # (Auto) 0.01 (0.01-0.08) K/mm3 Manual Slide Review Abnormal smear PT (9.7-12.0) SECONDS INR Sodium 139 (136-145) mEq/L Potassium 4.6 (3.5-5.1) mEq/L Chloride 104 (98-107) mEq/L Carbon Dioxide 26 (21-32) mEq/L Anion Gap 13.6 (5-15) BUN 9 (7-18) mg/dL Creatinine 0.8 (0.55-1.02) mg/dL Est Cr Clr Drug Dosing 43.64 mL/min Estimated GFR (MDRD) > 60 (>60) mL/min BUN/Creatinine Ratio 11.3 L (14-18) Glucose 169 H (70-99) mg/dL Lactic Acid (0.4-2.0) mmol/L Calcium 7.7 L D (8.5-10.1) mg/dL Total Bilirubin 0.9 (0.2-1.0) mg/dL AST 33 (15-37) U/L ALT 34 (14-59) U/L Alkaline Phosphatase 53 (46-116) U/L Total Protein 5.7 L (6.4-8.2) g/dl Albumin 3.0 L (3.4-5.0) g/dl Globulin 2.7 gm/dL Albumin/Globulin Ratio 1.1 (1-2) Lipase (73-393) U/L Urine Color Yellow (Yellow) Urine Appearance Clear (Clear) Urine pH 7.5 (5.0-8.0) Ur Specific [place] 1.020 (1.005-1.030) Urine Protein 1+ H (Negative) Urine Glucose (UA) Negative (Negative) Urine Ketones 2+ H (Negative) Urine Occult Blood Negative (Negative) Urine Nitrite Negative (Negative) Urine Bilirubin Negative (Negative) Urine Urobilinogen 0.2 (0.2-1.0) Ur Leukocyte Esterase Negative (Negative) U Hyaline Cast (Auto) 5-10 H (0-5) /lpf Urine RBC 0-5 (0-5) /hpf Urine WBC 0-5 (0-5) /hpf Ur Squamous Epith Cells Not seen (0-5) /hpf Amorphous Sediment Moderate H (NOT SEEN) /hpf Urine Bacteria Few (FEW) /hpf Urine Mucus Not seen (FEW) /hpf Ethyl Alcohol (0.00) gm% SARS-CoV-2 RNA (WOO) (NEGATIVE) Med Orders - Current: Current Medications Albuterol (Albuterol 0.083% 2.5 Mg/3 Ml Neb Soln) 2.5 mg NEB ONETIME PRN PRN Reason: COPD Allopurinol (Allopurinol 100 Mg Tab) 100 mg PO DAILY [facility] Last Admin: 03/11/21 08:09 Dose: 100 mg Documented by: Diphenhydramine HCl (Diphenhydramine 50 Mg/Ml Sdv) 25 mg IVPUSH Q6H PRN PRN Reason: pruritis Ephedrine Sulfate (Ephedrine 50 Mg/Ml Sdv) 5 mg IVPUSH ASDIRECTED PRN PRN Reason: Hypotension Famotidine (Famotidine 20 Mg/2 Ml Sdv) 20 mg IVPUSH BID [facility] Last Admin: 03/11/21 08:10 Dose: 20 mg Documented by: Fentanyl (Fentanyl 100 Mcg/2 Ml Sdv) 50 mcg IVPUSH Q20M PRN PRN Reason: Pain Hydromorphone HCl (Hydromorphone 0.5 Mg/0.5 Ml Syringe) 0.5 mg IVPUSH Q2H PRN PRN Reason: Pain (severe 7-10) Lactated Ringer's (Ringers, Lactated) 1,000 mls @ 125 mls/hr IV ASDIRECTED [facility] Last Admin: 03/11/21 08:15 Dose: 125 mls/hr Documented by: Miscellaneous Medication (Phenylephrine Hcl In 0.9% Nacl 1 Mg/10 Ml Syringe) 0.1 mg IVPUSH Q10M PRN PRN Reason: Hypotension Mometasone Furoate/Formoterol Fumar (Formoterol/Mometasone 200-5 Mcg 8.8 Gm In haler) 2 puff IH BID [facility] Ondansetron HCl (Ondansetron 4 Mg/2 Ml Sdv) 4 mg IVPUSH Q6H PRN PRN Reason: Nausea/Vomiting Oxycodone/Acetaminophen (Acetaminophen/Oxycodone 325-5 Mg Tab) 1 tab PO Q4H PRN PRN Reason: Pain (moderate 4-6) Last Admin: 03/11/21 08:09 Dose: 1 tab Documented by: Sodium Chloride (Sodium Chloride 0.9% 10 Ml Syringe) 10 ml FLUSH ASDIRECTED PRN PRN Reason: Keep Vein Open Last Admin: 03/10/21 21:57 Dose: 10 ml Documented by: Tiotropium [place] (Tiotropium [place] 4 Gm Inhalation [place] (2.5mcg/1 Dose; 10 Doses)) 0 gm INH DAILY [facility] Last Admin: 03/11/21 08:09 Dose: 2 puff Documented by: Discontinued Medications Albuterol (Albuterol 0.083% 2.5 Mg/3 Ml Neb Soln) 2.5 mg NEB ONETIME ONE Stop: 03/11/21 00:12 Last Admin: 03/11/21 00:23 Dose: 2.5 mg Documented by: Bacitracin (Bacitracin Oint 15 Gm Tube) Confirm Administered Dose 15 gm .ROUTE .STK-MED ONE Stop: 03/11/21 03:04 Bupivacaine HCl/Epinephrine Bitart (Bupivacaine 0.5%/Epinephrine 1:200,000 50 Ml Mdv) Confirm Administered Dose 50 ml .ROUTE .STK-MED ONE Stop: 03/11/21 00:46 Last Admin: 03/11/21 01:28 Dose: 5 ml Documented by: Dexamethasone (Dexamethasone 4 Mg/Ml 5 Ml Mdv) Confirm Administered Dose 20 mg .ROUTE .STK-MED ONE Stop: 03/11/21 00:33 Ephedrine Sulfate (Ephedrine 50 Mg/Ml Sdv) Confirm Administered Dose 50 mg .ROUTE .STK-MED ONE Stop: 03/11/21 02:31 Fentanyl (Fentanyl 250 Mcg/5 Ml Sdv) Confirm Administered Dose 250 mcg .ROUTE .STK-MED ONE Stop: 03/11/21 00:34 Glycopyrrolate (Glycopyrrolate 0.2 Mg/Ml Sdv) Confirm Administered Dose 1 mg .ROUTE .STK-MED ONE Stop: 03/11/21 01:45 Hydromorphone HCl (Hydromorphone 0.5 Mg/0.5 Ml Syringe) 0.5 mg IVPUSH ONETIME ONE Stop: 03/10/21 21:46 Last Admin: 03/10/21 21:57 Dose: 0.5 mg Documented by: Hydromorphone HCl (Hydromorphone 0.5 Mg/0.5 Ml Syringe) 0.5 mg IVPUSH ONETIME ONE Stop: 03/10/21 22:44 Last Admin: 03/10/21 22:51 Dose: 0.5 mg Documented by: Hydromorphone HCl (Hydromorphone 0.5 Mg/0.5 Ml Syringe) 0.5 mg IVPUSH Q10M PRN PRN Reason: Pain (severe 7-10) Hydromorphone HCl (Hydromorphone 0.5 Mg/0.5 Ml Syringe) Confirm Administered Dose 0.5 mg .ROUTE .ST-MED ONE Stop: 03/11/21 01:43 Sodium Chloride (Normal Saline) 1,000 mls @ 1,000 mls/hr IV .BOLUS STA Stop: 03/10/21 22:43 Last Admin: 03/10/21 21:56 Dose: 1,000 mls/hr Documented by: Sodium Chloride (Normal Saline) 100 mls @ 60 drops/hr IV ASDIRECTED [facility] Last Admin: 03/10/21 23:30 Dose: 60 drops/hr Documented by: Piperacillin Sod/Tazobactam (Sod 4.5 gm/ Sodium Chloride) 100 mls @ 200 mls/hr IV ONETIME ONE Stop: 03/11/21 00:16 Last Admin: 03/11/21 00:00 Dose: 200 mls/hr Documented by: Lidocaine HCl (Xylocaine-Mpf 1%) Confirm Administered Dose 4 mls @ as directed .ROUTE .STK-MED ONE Stop: 03/11/21 00:33 Lactated Ringer's (Ringers, Lactated) Confirm Administered Dose 2,000 mls @ as directed .ROUTE .STK-MED ONE Stop: 03/11/21 00:33 Lactated Ringer's (Ringers, Lactated) Confirm Administered Dose 1,000 mls @ as directed .ROUTE .[facility]-MED ONE Stop: 03/11/21 02:28 Iopamidol (Iopamidol 612 Mg/Ml 100 Ml Bottle) 100 ml IVPUSH ONETIME ONE Stop: 03/10/21 21:54 Last Admin: 03/10/21 23:30 Dose: 100 ml Documented by: Labetalol HCl (Labetalol 100 Mg/20 Ml Mdv) Confirm Administered Dose 100 mg .ROUTE .[facility]-MED ONE Stop: 03/11/21 02:54 Lidocaine/Epinephrine (Lidocaine 1% With Epinephrine 1:100,000 10 Ml Mdv) Confirm Administered Dose 20 ml .ROUTE .[facility]-MED ONE Stop: 03/11/21 00:46 Last Admin: 03/11/21 01:28 Dose: 5 ml Documented by: Miscellaneous Medication (Phenylephrine Hcl In 0.9% Nacl 1 Mg/10 Ml Syringe) Confirm Administered Dose 1 mg .ROUTE .[facility]-MED ONE Stop: 03/11/21 00:33 Neostigmine Methylsulfate (Neostigmine Methylsulfate 5 Mg/5 Ml Syringe) Confirm Administered Dose 5 mg .ROUTE .[facility]-MED ONE Stop: 03/11/21 01:45 Ondansetron HCl (Ondansetron 4 Mg/2 Ml Sdv) 4 mg IVPUSH ONETIME ONE Stop: 03/10/21 21:45 Last Admin: 03/10/21 21:56 Dose: 4 mg Documented by: Ondansetron HCl (Ondansetron 4 Mg/2 Ml Sdv) Confirm Administered Dose 4 mg .ROUTE .ST-MED ONE Stop: 03/11/21 00:33 Propofol (Propofol 200 Mg/20 Ml Sdv) Confirm Administered Dose 200 mg .ROUTE .[facility]-MED ONE Stop: 03/11/21 00:33 Rocuronium [place] (Rocuronium 50 Mg/5 Ml Vial) Confirm Administered Dose 50 mg .ROUTE .STK-MED ONE Stop: 03/11/21 00:33 Sodium Chloride (Sodium Chloride 0.9% 10 Ml Syringe) 10 ml FLUSH [facility] Last Admin: 03/10/21 23:30 Dose: 10 ml Documented by: - Exam Quality Assessment: Supplemental Oxygen Urinary Catheter Total Time: 0Days 7Hours General: Alert, Oriented, Cooperative Lungs: Normal Respiratory Effort Cardiovascular: Regular Rate, Regular Rhythm, No Murmurs GI/Abdominal Exam: Soft, No Distention, No Mass, Tender (appropriately) - Patient Data Lab Results Last 24 hrs: Laboratory Results - last 24 hr 03/10/21 03/10/21 03/10/21 Range/Units 22:00 22:00 22:00 WBC 16.02 H (3.98-10.04) K/mm3 RBC 4.99 (3.98-5.22) M/mm3 Hgb 15.9 H (11.2-15.7) gm/dl Hct 47.7 H (34.1-44.9) % MCV 95.6 H (79.4-94.8) fl MCH 31.9 (25.6-32.2) pg MCHC 33.3 (32.2-35.5) g/dl RDW Std Deviation 47.7 H (36.4-46.3) fL Plt Count 353 (182-369) K/mm3 MPV 9.7 (9.4-12.3) fl Neut % (Auto) 87.3 H (34.0-71.1) % Lymph % (Auto) 4.4 L (19.3-51.7) % [place] % (Auto) 7.9 (4.7-12.5) % Eos % (Auto) 0.1 L (0.7-5.8) Baso % (Auto) 0.1 (0.1-1.2) % Neut # (Auto) 13.99 H (1.56-6.13) K/mm3 Lymph # (Auto) 0.70 L (1.18-3.74) K/mm3 [place] # (Auto) 1.27 H (0.24-0.36) K/mm3 Eos # (Auto) 0.01 L (0.04-0.36) K/mm3 Baso # (Auto) 0.01 (0.01-0.08) K/mm3 Manual Slide Review Abnormal smear PT (9.7-12.0) SECONDS INR Sodium 137 (136-145) mEq/L Potassium 3.7 (3.5-5.1) mEq/L Chloride 96 L (98-107) mEq/L Carbon Dioxide 25 (21-32) mEq/L Anion Gap 19.7 H (5-15) BUN 13 (7-18) mg/dL Creatinine 0.9 (0.55-1.02) mg/dL Est Cr Clr Drug Dosing 38.79 mL/min Estimated GFR (MDRD) > 60 (>60) mL/min BUN/Creatinine Ratio 14.4 (14-18) Glucose 178 H (70-99) mg/dL Lactic Acid (0.4-2.0) mmol/L Calcium 9.4 (8.5-10.1) mg/dL Total Bilirubin 0.8 (0.2-1.0) mg/dL AST 48 H (15-37) U/L ALT 47 (14-59) U/L Alkaline Phosphatase 75 (46-116) U/L Total Protein 7.5 (6.4-8.2) g/dl Albumin 4.2 (3.4-5.0) g/dl Globulin 3.3 gm/dL Albumin/Globulin Ratio 1.3 (1-2) Lipase 1332 H (73-393) U/L Urine Color (Yellow) Urine Appearance (Clear) Urine pH (5.0-8.0) Ur Specific [place] (1.005-1.030) Urine Protein (Negative) Urine Glucose (UA) (Negative) Urine Ketones (Negative) Urine Occult Blood (Negative) Urine Nitrite (Negative) Urine Bilirubin (Negative) Urine Urobilinogen (0.2-1.0) Ur Leukocyte Esterase (Negative) U Hyaline Cast (Auto) (0-5) /lpf Urine RBC (0-5) /hpf Urine WBC (0-5) /hpf Ur Squamous Epith Cells (0-5) /hpf Amorphous Sediment (NOT SEEN) /hpf Urine Bacteria (FEW) /hpf Urine Mucus (FEW) /hpf Ethyl Alcohol 0.00 (0.00) gm% SARS-CoV-2 RNA (WOO) (NEGATIVE) 03/10/21 03/11/21 03/11/21 Range/Units 23:21 00:40 00:40 WBC (3.98-10.04) K/mm3 RBC (3.98-5.22) M/mm3 Hgb (11.2-15.7) gm/dl Hct (34.1-44.9) % MCV (79.4-94.8) fl MCH (25.6-32.2) pg MCHC (32.2-35.5) g/dl RDW Std Deviation (36.4-46.3) fL Plt Count (182-369) K/mm3 MPV (9.4-12.3) fl Neut % (Auto) (34.0-71.1) % Lymph % (Auto) (19.3-51.7) % [place] % (Auto) (4.7-12.5) % Eos % (Auto) (0.7-5.8) Baso % (Auto) (0.1-1.2) % Neut # (Auto) (1.56-6.13) K/mm3 Lymph # (Auto) (1.18-3.74) K/mm3 [place] # (Auto) (0.24-0.36) K/mm3 Eos # (Auto) (0.04-0.36) K/mm3 Baso # (Auto) (0.01-0.08) K/mm3 Manual Slide Review PT 10.9 (9.7-12.0) SECONDS INR 1.02 Sodium (136-145) mEq/L Potassium (3.5-5.1) mEq/L Chloride (98-107) mEq/L Carbon Dioxide (21-32) mEq/L Anion Gap (5-15) BUN (7-18) mg/dL Creatinine (0.55-1.02) mg/dL Est Cr Clr Drug Dosing mL/min Estimated GFR (MDRD) (>60) mL/min BUN/Creatinine Ratio (14-18) Glucose (70-99) mg/dL Lactic Acid 1.0 (0.4-2.0) mmol/L Calcium (8.5-10.1) mg/dL Total Bilirubin (0.2-1.0) mg/dL AST (15-37) U/L ALT (14-59) U/L Alkaline Phosphatase (46-116) U/L Total Protein (6.4-8.2) g/dl Albumin (3.4-5.0) g/dl Globulin gm/dL Albumin/Globulin Ratio (1-2) Lipase (73-393) U/L Urine Color (Yellow) Urine Appearance (Clear) Urine pH (5.0-8.0) Ur Specific [place] (1.005-1.030) Urine Protein (Negative) Urine Glucose (UA) (Negative) Urine Ketones (Negative) Urine Occult Blood (Negative) Urine Nitrite (Negative) Urine Bilirubin (Negative) Urine Urobilinogen (0.2-1.0) Ur Leukocyte Esterase (Negative) U Hyaline Cast (Auto) (0-5) /lpf Urine RBC (0-5) /hpf Urine WBC (0-5) /hpf Ur Squamous Epith Cells (0-5) /hpf Amorphous Sediment (NOT SEEN) /hpf Urine Bacteria (FEW) /hpf Urine Mucus (FEW) /hpf Ethyl Alcohol (0.00) gm% SARS-CoV-2 RNA (WOO) Negative (NEGATIVE) 03/11/21 03/11/21 03/11/21 Range/Units 01:24 05:45 05:45 WBC 15.65 H (3.98-10.04) K/mm3 RBC 4.17 (3.98-5.22) M/mm3 Hgb 13.4 D (11.2-15.7) gm/dl Hct 40.8 (34.1-44.9) % MCV 97.8 H (79.4-94.8) fl MCH 32.1 (25.6-32.2) pg MCHC 32.8 (32.2-35.5) g/dl RDW Std Deviation 48.5 H (36.4-46.3) fL Plt Count 304 (182-369) K/mm3 MPV 10.0 (9.4-12.3) fl Neut % (Auto) 93.3 H (34.0-71.1) % Lymph % (Auto) 1.2 L (19.3-51.7) % [place] % (Auto) 5.3 (4.7-12.5) % Eos % (Auto) 0 L (0.7-5.8) Baso % (Auto) 0.1 (0.1-1.2) % Neut # (Auto) 14.61 H (1.56-6.13) K/mm3 Lymph # (Auto) 0.18 L (1.18-3.74) K/mm3 [place] # (Auto) 0.83 H (0.24-0.36) K/mm3 Eos # (Auto) 0.00 L (0.04-0.36) K/mm3 Baso # (Auto) 0.01 (0.01-0.08) K/mm3 Manual Slide Review Abnormal smear PT (9.7-12.0) SECONDS INR Sodium 139 (136-145) mEq/L Potassium 4.6 (3.5-5.1) mEq/L Chloride 104 (98-107) mEq/L Carbon Dioxide 26 (21-32) mEq/L Anion Gap 13.6 (5-15) BUN 9 (7-18) mg/dL Creatinine 0.8 (0.55-1.02) mg/dL Est Cr Clr Drug Dosing 43.64 mL/min Estimated GFR (MDRD) > 60 (>60) mL/min BUN/Creatinine Ratio 11.3 L (14-18) Glucose 169 H (70-99) mg/dL Lactic Acid (0.4-2.0) mmol/L Calcium 7.7 L D (8.5-10.1) mg/dL Total Bilirubin 0.9 (0.2-1.0) mg/dL AST 33 (15-37) U/L ALT 34 (14-59) U/L Alkaline Phosphatase 53 (46-116) U/L Total Protein 5.7 L (6.4-8.2) g/dl Albumin 3.0 L (3.4-5.0) g/dl Globulin 2.7 gm/dL Albumin/Globulin Ratio 1.1 (1-2) Lipase (73-393) U/L Urine Color Yellow (Yellow) Urine Appearance Clear (Clear) Urine pH 7.5 (5.0-8.0) Ur Specific [place] 1.020 (1.005-1.030) Urine Protein 1+ H (Negative) Urine Glucose (UA) Negative (Negative) Urine Ketones 2+ H (Negative) Urine Occult Blood Negative (Negative) Urine Nitrite Negative (Negative) Urine Bilirubin Negative (Negative) Urine Urobilinogen 0.2 (0.2-1.0) Ur Leukocyte Esterase Negative (Negative) U Hyaline Cast (Auto) 5-10 H (0-5) /lpf Urine RBC 0-5 (0-5) /hpf Urine WBC 0-5 (0-5) /hpf Ur Squamous Epith Cells Not seen (0-5) /hpf Amorphous Sediment Moderate H (NOT SEEN) /hpf Urine Bacteria Few (FEW) /hpf Urine Mucus Not seen (FEW) /hpf Ethyl Alcohol (0.00) gm% SARS-CoV-2 RNA (WOO) (NEGATIVE) Result Diagrams: 03/11/21 05:45 03/11/21 05:45 Sepsis Event Note - Evaluation Sepsis Screening Result: No Definite Risk - Focused Exam Vital Signs: Vital Signs Temp Pulse Resp BP BP Pulse Ox Pulse Ox 03/11/21 08:56 93 L 03/11/21 08:37 94 L 03/11/21 08:00 98.6 F 20 116/54 L 94 L 03/11/21 06:30 18 105/49 L 96 03/11/21 06:26 94 L 03/11/21 06:00 97.8 F 20 103/51 L 95 03/11/21 05:30 18 93 L 03/11/21 05:15 97.9 F 18 100/51 L 94 L 03/11/21 05:00 97.9 F 18 102/50 L 93 L 03/11/21 04:52 92 L 03/11/21 04:45 97.8 F 18 110/97 H 92 L 03/11/21 04:30 97.9 F 18 105/84 94 L 94 L 03/11/21 04:15 97.9 F 18 118/62 94 L 03/11/21 04:05 98.5 F 77 19 119/54 L 94 L 03/11/21 04:00 98.4 F 76 19 113/60 95 03/11/21 03:45 98.5 F 79 22 H 128/55 L 96 03/11/21 03:30 97.5 F 79 18 140/58 L 97 03/11/21 03:15 97.4 F 82 22 H 124/59 L 98 03/11/21 00:24 89 L - Problem List Review Problem List Initiated/Reviewed/Updated: No - My Orders Last 24 Hours: My Active Orders 03/11/21 03:17 Patient Status [ADT] Routine Oxygen Therapy [RC] PRN RT Incentive Spirometry [RC] Q1HWA Up ad Berna [RC] ASDIRECTED Urinary Catheter Assessment [RC] Q4HR Vital Signs [RC] Q4HR Acetaminophen/oxyCODONE [Percocet 325-5 MG] 1 tab PO Q4H PRN HYDROmorphone [Dilaudid] 0.5 mg IVPUSH Q2H PRN Ondansetron [Zofran] 4 mg IVPUSH Q6H PRN Resuscitation Status Routine 03/11/21 03:19 Intake and Output [RC] 04,16 03/11/21 03:30 Lactated Ringers [Ringers, Lactated] 1,000 ml IV ASDIRECTED 03/11/21 Breakfast Clear Liquid Diet [DIET] 03/11/21 08:34 SCD [Sequential Compression Device] [OM.PC] Routine 03/11/21 08:35 Antiembolic Devices [RC] 03/11/21 09:00 Famotidine [Pepcid] 20 mg IVPUSH BID Tiotropium [place] [Spiriva Respimat] 0 gm INH DAILY allopurinoL [Zyloprim] 100 mg PO DAILY 03/11/21 10:00 Mometasone/Formoterol [Dulera 200-5 MCG] 2 puff IH BID 03/12/21 05:11 CBC WITH AUTO DIFF [HEME] AM COMPREHENSIVE METABOLIC PN,CMP [CHEM] AM 03/13/21 05:11 CBC WITH AUTO DIFF [HEME] AM COMPREHENSIVE METABOLIC PN,CMP [CHEM] AM 03/14/21 05:11 CBC WITH AUTO DIFF [HEME] AM COMPREHENSIVE METABOLIC PN,CMP [CHEM] AM 03/15/21 05:11 CBC WITH AUTO DIFF [HEME] AM COMPREHENSIVE METABOLIC PN,CMP [CHEM] AM - Assessment Assessment:: POD1 extended right hemicolectomy for cecal volvulus. Stable - Plan Plan:: - Incentive spirometer - Ambulation today - remove mina - monitor for alcohol withdrawal syndrome - Will do antibiotics for intraabdominal infection due to presence of necrotic bowel - Awaiting return of bowel function
[2021-03-11] MEDS ORDERED: Piperacillin/Tazobactam 4.5 GM in Sodium Chloride 0.9% 100 ML IV ONE (11:00)
[2021-03-11] MEDS ORDERED: Carboxymethylcellulose Sodium 1% Ophth Gel 15 ML Bottle EYEBOTH PRN (13:30)
[2021-03-11] MEDS: HYDROmorphone 0.5 MG/0.5 ML Syringe IVPUSH PRN ×2 (13:34→18:00)
[2021-03-11] MEDS: Piperacillin/Tazobactam 4.5 GM in Sodium Chloride 0.9% 100 ML IV SCH (18:32)
[2021-03-11] MEDS: Montelukast 10 MG Tab PO SCH (20:20)
[2021-03-11] MEDS: SALMETEROL INH SCH (20:42)
[2021-03-11] MEDS: FLUTICASONE INH SCH (20:42)
[2021-03-12] MEDS: Piperacillin/Tazobactam 4.5 GM in Sodium Chloride 0.9% 100 ML IV SCH ×3 (03:00→18:41)
[2021-03-12] MEDS: HYDROmorphone 0.5 MG/0.5 ML Syringe IVPUSH PRN (04:11)
[2021-03-12] MEDS: Levothyroxine 88 MCG Tab PO SCH (06:08)
[2021-03-12] MEDS: Lactated Ringers 1,000 ML IV SCH ×2 (06:09→08:32)
[2021-03-12] MEDS ORDERED: Phosphorus #1 250 MG Tab PO ONE (07:26)
--- NOTE | 2021-03-12 08:11 | PCM.PN ---
- General Info Date of Service: 03/12/21 Admission Dx/Problem (Free Text): Admission Diagnosis/Problem Admission Diagnosis/Problem Volvulus of colon Subjective Update: tolerating clears, no nausea or vomiting, ambulating to the bathroom Functional Status: Reports: Pain Controlled, Tolerating Diet (clears), Ambulating, Urinating - Review of Systems General: Reports: No Symptoms HEENT: Reports: No Symptoms Pulmonary: Reports: No Symptoms Cardiovascular: Reports: No Symptoms Gastrointestinal: Reports: No Symptoms Genitourinary: Reports: No Symptoms Musculoskeletal: Reports: No Symptoms Skin: Reports: No Symptoms - Patient Data Vitals - Most Recent: Last Vital Signs Temp 97.6 F 03/12/21 04:00 Pulse 77 03/11/21 04:05 Resp 16 03/12/21 04:00 BP 126/51 L 03/12/21 04:00 Pulse Ox 90 L 03/12/21 06:50 Weight - Most Recent: 54.295 kg I&O - Last 24 Hours: Intake & Output 03/11/21 03/12/21 03/12/21 22:59 06:59 14:59 Intake Total 2279 1275 100 Output Total 1825 1000 Balance 454 275 100 Lab Results Last 24 Hours: Laboratory Results - last 24 hr 03/12/21 03/12/21 Range/Units 05:22 05:22 WBC 8.83 (3.98-10.04) K/mm3 RBC 3.47 L (3.98-5.22) M/mm3 Hgb 11.0 L D (11.2-15.7) gm/dl Hct 34.8 (34.1-44.9) % MCV 100.3 H (79.4-94.8) fl MCH 31.7 (25.6-32.2) pg MCHC 31.6 L (32.2-35.5) g/dl RDW Std Deviation 51.4 H (36.4-46.3) fL Plt Count 252 (182-369) K/mm3 MPV 10.3 (9.4-12.3) fl Neut % (Auto) 75.8 H (34.0-71.1) % Lymph % (Auto) 13.9 L (19.3-51.7) % Floyd % (Auto) 9.5 (4.7-12.5) % Eos % (Auto) 0.5 L (0.7-5.8) Baso % (Auto) 0.2 (0.1-1.2) % Neut # (Auto) 6.69 H (1.56-6.13) K/mm3 Lymph # (Auto) 1.23 (1.18-3.74) K/mm3 Floyd # (Auto) 0.84 H (0.24-0.36) K/mm3 Eos # (Auto) 0.04 (0.04-0.36) K/mm3 Baso # (Auto) 0.02 (0.01-0.08) K/mm3 Sodium 141 (136-145) mEq/L Potassium 3.7 (3.5-5.1) mEq/L Chloride 105 (98-107) mEq/L Carbon Dioxide 26 (21-32) mEq/L Anion Gap 13.7 (5-15) BUN 7 (7-18) mg/dL Creatinine 0.8 (0.55-1.02) mg/dL Est Cr Clr Drug Dosing 43.64 mL/min Estimated GFR (MDRD) > 60 (>60) mL/min BUN/Creatinine Ratio 8.8 L (14-18) Glucose 98 (70-99) mg/dL Calcium 7.6 L (8.5-10.1) mg/dL Phosphorus 2.5 L (2.6-4.7) mg/dL Magnesium 1.9 (1.8-2.4) mg/dL Total Bilirubin 0.7 (0.2-1.0) mg/dL AST 34 (15-37) U/L ALT 29 (14-59) U/L Alkaline Phosphatase 49 (46-116) U/L Total Protein 5.6 L (6.4-8.2) g/dl Albumin 2.7 L (3.4-5.0) g/dl Globulin 2.9 gm/dL Albumin/Globulin Ratio 0.9 L (1-2) Med Orders - Current: Current Medications Allopurinol (Allopurinol 100 Mg Tab) 100 mg PO DAILY [facility] Last Admin: 03/11/21 08:09 Dose: 100 mg Documented by: Artificial Tears (Carboxymethylcellulose Sodium 1% Ophth Gel 15 Ml Bottle) 0 ml EYEBOTH ASDIRECTED PRN PRN Reason: Dry Eyes Last Admin: 03/11/21 14:19 Dose: 1 drop Documented by: Famotidine (Famotidine 20 Mg/2 Ml Sdv) 20 mg IVPUSH BID [facility] Last Admin: 03/11/21 20:20 Dose: 20 mg Documented by: Hydromorphone HCl (Hydromorphone 0.5 Mg/0.5 Ml Syringe) 0.5 mg IVPUSH Q2H PRN PRN Reason: Pain (severe 7-10) Last Admin: 03/12/21 04:11 Dose: 0.5 mg Documented by: Hydroxychloroquine Sulfate (Hydroxychloroquine 200 Mg Tab) 200 mg PO DAILY [facility] Piperacillin Sod/Tazobactam (Sod 4.5 gm/ Sodium Chloride) 100 mls @ 25 mls/hr IV Q8H [facility] Last Admin: 03/12/21 03:00 Dose: 25 mls/hr Documented by: Lactated Ringer's (Ringers, Lactated) 1,000 mls @ 50 mls/hr IV ASDIRECTED [facility] Levothyroxine Sodium (Levothyroxine 88 Mcg Tab) 88 mcg PO ACBREAKFAST [facility] Last Admin: 03/12/21 06:08 Dose: 88 mcg Documented by: Montelukast Sodium (Montelukast 10 Mg Tab) 10 mg PO BEDTIME [facility] Last Admin: 03/11/21 20:20 Dose: 10 mg Documented by: Ondansetron HCl (Ondansetron 4 Mg/2 Ml Sdv) 4 mg IVPUSH Q6H PRN PRN Reason: Nausea/Vomiting Oxycodone/Acetaminophen (Acetaminophen/Oxycodone 325-5 Mg Tab) 1 tab PO Q4H PRN PRN Reason: Pain (moderate 4-6) Last Admin: 03/11/21 20:30 Dose: 1 tab Documented by: Wixela Inhaler 250 Mcg/50 Mcg Patient 's Own Med 0 each INH BID [facility] Last Admin: 03/11/21 20:42 Dose: 1 each Documented by: Roflumilast 500 Mcg Tablet Patient's Own Med 0 each PO DAILY [facility] Sodium Chloride (Sodium Chloride 0.9% 10 Ml Syringe) 10 ml FLUSH ASDIRECTED PRN PRN Reason: Keep Vein Open Last Admin: 03/10/21 21:57 Dose: 10 ml Documented by: Tiotropium [place] (Tiotropium [place] 4 Gm Inhalation [place] (2.5mcg/1 Dose; 10 Doses)) 0 gm INH DAILY [facility] Last Admin: 03/11/21 08:09 Dose: 2 puff Documented by: Venlafaxine HCl (Venlafaxine 75 Mg Cap.Er) 75 mg PO DAILY [facility] Discontinued Medications Albuterol (Albuterol 0.083% 2.5 Mg/3 Ml Neb Soln) 2.5 mg NEB ONETIME ONE Stop: 03/11/21 00:12 Last Admin: 03/11/21 00:23 Dose: 2.5 mg Documented by: Albuterol (Albuterol 0.083% 2.5 Mg/3 Ml Neb Soln) 2.5 mg NEB ONETIME PRN PRN Reason: COPD Bacitracin (Bacitracin Oint 15 Gm Tube) Confirm Administered Dose 15 gm .ROUTE .STK-MED ONE Stop: 03/11/21 03:04 Bupivacaine HCl/Epinephrine Bitart (Bupivacaine 0.5%/Epinephrine 1:200,000 50 Ml Mdv) Confirm Administered Dose 50 ml .ROUTE .STK-MED ONE Stop: 03/11/21 00:46 Last Admin: 03/11/21 01:28 Dose: 5 ml Documented by: Dexamethasone (Dexamethasone 4 Mg/Ml 5 Ml Mdv) Confirm Administered Dose 20 mg .ROUTE .STK-MED ONE Stop: 03/11/21 00:33 Diphenhydramine HCl (Diphenhydramine 50 Mg/Ml Sdv) 25 mg IVPUSH Q6H PRN PRN Reason: pruritis Ephedrine Sulfate (Ephedrine 50 Mg/Ml Sdv) 5 mg IVPUSH ASDIRECTED PRN PRN Reason: Hypotension Ephedrine Sulfate (Ephedrine 50 Mg/Ml Sdv) Confirm Administered Dose 50 mg .ROUTE .STK-MED ONE Stop: 03/11/21 02:31 Fentanyl (Fentanyl 250 Mcg/5 Ml Sdv) Confirm Administered Dose 250 mcg .ROUTE .STK-MED ONE Stop: 03/11/21 00:34 Fentanyl (Fentanyl 100 Mcg/2 Ml Sdv) 50 mcg IVPUSH Q20M PRN PRN Reason: Pain Glycopyrrolate (Glycopyrrolate 0.2 Mg/Ml Sdv) Confirm Administered Dose 1 mg .ROUTE .STK-MED ONE Stop: 03/11/21 01:45 Hydromorphone HCl (Hydromorphone 0.5 Mg/0.5 Ml Syringe) 0.5 mg IVPUSH ONETIME ONE Stop: 03/10/21 21:46 Last Admin: 03/10/21 21:57 Dose: 0.5 mg Documented by: Hydromorphone HCl (Hydromorphone 0.5 Mg/0.5 Ml Syringe) 0.5 mg IVPUSH ONETIME ONE Stop: 03/10/21 22:44 Last Admin: 03/10/21 22:51 Dose: 0.5 mg Documented by: Hydromorphone HCl (Hydromorphone 0.5 Mg/0.5 Ml Syringe) 0.5 mg IVPUSH Q10M PRN PRN Reason: Pain (severe 7-10) Hydromorphone HCl (Hydromorphone 0.5 Mg/0.5 Ml Syringe) Confirm Administered Dose 0.5 mg .ROUTE .STK-MED ONE Stop: 03/11/21 01:43 Sodium Chloride (Normal Saline) 1,000 mls @ 1,000 mls/hr IV .BOLUS STA Stop: 03/10/21 22:43 Last Admin: 03/10/21 21:56 Dose: 1,000 mls/hr Documented by: Sodium Chloride (Normal Saline) 100 mls @ 60 drops/hr IV ASDIRECTED [facility] Last Admin: 03/10/21 23:30 Dose: 60 drops/hr Documented by: Piperacillin Sod/Tazobactam (Sod 4.5 gm/ Sodium Chloride) 100 mls @ 200 mls/hr IV ONETIME ONE Stop: 03/11/21 00:16 Last Admin: 03/11/21 00:00 Dose: 200 mls/hr Documented by: Lidocaine HCl (Xylocaine-Mpf 1%) Confirm Administered Dose 4 mls @ as directed .ROUTE .STK-MED ONE Stop: 03/11/21 00:33 Lactated Ringer's (Ringers, Lactated) Confirm Administered Dose 2,000 mls @ as directed .ROUTE .STK-MED ONE Stop: 03/11/21 00:33 Lactated Ringer's (Ringers, Lactated) Confirm Administered Dose 1,000 mls @ as directed .ROUTE .STK-MED ONE Stop: 03/11/21 02:28 Lactated Ringer's (Ringers, Lactated) 1,000 mls @ 50 mls/hr IV ASDIRECTED [facility] Last Admin: 03/12/21 06:09 Dose: 75 mls/hr Documented by: Piperacillin Sod/Tazobactam (Sod 4.5 gm/ Sodium Chloride) 100 mls @ 25 mls/hr IV ONETIME ONE Stop: 03/11/21 14:59 Last Admin: 03/11/21 11:08 Dose: 25 mls/hr Documented by: Iopamidol (Iopamidol 612 Mg/Ml 100 Ml Bottle) 100 ml IVPUSH ONETIME ONE Stop: 03/10/21 21:54 Last Admin: 03/10/21 23:30 Dose: 100 ml Documented by: Labetalol HCl (Labetalol 100 Mg/20 Ml Mdv) Confirm Administered Dose 100 mg .ROUTE .STK-MED ONE Stop: 03/11/21 02:54 Lidocaine/Epinephrine (Lidocaine 1% With Epinephrine 1:100,000 10 Ml Mdv) Confirm Administered Dose 20 ml .ROUTE .STK-MED ONE Stop: 03/11/21 00:46 Last Admin: 03/11/21 01:28 Dose: 5 ml Documented by: Miscellaneous Medication (Phenylephrine Hcl In 0.9% Nacl 1 Mg/10 Ml Syringe) Confirm Administered Dose 1 mg .ROUTE .STK-MED ONE Stop: 03/11/21 00:33 Miscellaneous Medication (Phenylephrine Hcl In 0.9% Nacl 1 Mg/10 Ml Syringe) 0.1 mg IVPUSH Q10M PRN PRN Reason: Hypotension Mometasone Furoate/Formoterol Fumar (Formoterol/Mometasone 200-5 Mcg 8.8 Gm Inhaler) 2 puff IH BID [facility] Last Admin: 03/11/21 12:05 Dose: Not Given Documented by: Neostigmine Methylsulfate (Neostigmine Methylsulfate 5 Mg/5 Ml Syringe) Confirm Administered Dose 5 mg .ROUTE .STK-MED ONE Stop: 03/11/21 01:45 Ondansetron HCl (Ondansetron 4 Mg/2 Ml Sdv) 4 mg IVPUSH ONETIME ONE Stop: 03/10/21 21:45 Last Admin: 05/23/21 21:56 Dose: 4 mg Documented by: Ondansetron HCl (Ondansetron 4 Mg/2 Ml Sdv) Confirm Administered Dose 4 mg .ROUTE .STK-MED ONE Stop: 03/11/21 00:33 Propofol (Propofol 200 Mg/20 Ml Sdv) Confirm Administered Dose 200 mg .ROUTE .STK-MED ONE Stop: 03/11/21 00:33 Rocuronium [place] (Rocuronium 50 Mg/5 Ml Vial) Confirm Administered Dose 50 mg .ROUTE .STK-MED ONE Stop: 03/11/21 00:33 Sodium Chloride (Sodium Chloride 0.9% 10 Ml Syringe) 10 ml FLUSH [facility] Last Admin: 03/10/21 23:30 Dose: 10 ml Documented by: Sodium Phosphate (Phosphorus #1 250 Mg Tab) 500 mg PO ONETIME ONE Stop: 03/12/21 07:27 - Exam Quality Assessment: Supplemental Oxygen Urinary Catheter Total Time: 0Days 11Hours General: Alert, Oriented, Cooperative Lungs: Normal Respiratory Effort Cardiovascular: Regular Rate, Regular Rhythm, No Murmurs GI/Abdominal Exam: Soft, Tender (around the incision) - Patient Data Lab Results Last 24 hrs: Laboratory Results - last 24 hr 03/12/21 03/12/21 Range/Units 05:22 05:22 WBC 8.83 (3.98-10.04) K/mm3 RBC 3.47 L (3.98-5.22) M/mm3 Hgb 11.0 L D (11.2-15.7) gm/dl Hct 34.8 (34.1-44.9) % MCV 100.3 H (79.4-94.8) fl MCH 31.7 (25.6-32.2) pg MCHC 31.6 L (32.2-35.5) g/dl RDW Std Deviation 51.4 H (36.4-46.3) fL Plt Count 252 (182-369) K/mm3 MPV 10.3 (9.4-12.3) fl Neut % (Auto) 75.8 H (34.0-71.1) % Lymph % (Auto) 13.9 L (19.3-51.7) % Floyd % (Auto) 9.5 (4.7-12.5) % Eos % (Auto) 0.5 L (0.7-5.8) Baso % (Auto) 0.2 (0.1-1.2) % Neut # (Auto) 6.69 H (1.56-6.13) K/mm3 Lymph # (Auto) 1.23 (1.18-3.74) K/mm3 Floyd # (Auto) 0.84 H (0.24-0.36) K/mm3 Eos # (Auto) 0.04 (0.04-0.36) K/mm3 Baso # (Auto) 0.02 (0.01-0.08) K/mm3 Sodium 141 (136-145) mEq/L Potassium 3.7 (3.5-5.1) mEq/L Chloride 105 (98-107) mEq/L Carbon Dioxide 26 (21-32) mEq/L Anion Gap 13.7 (5-15) BUN 7 (7-18) mg/dL Creatinine 0.8 (0.55-1.02) mg/dL Est Cr Clr Drug Dosing 43.64 mL/min Estimated GFR (MDRD) > 60 (>60) mL/min BUN/Creatinine Ratio 8.8 L (14-18) Glucose 98 (70-99) mg/dL Calcium 7.6 L (8.5-10.1) mg/dL Phosphorus 2.5 L (2.6-4.7) mg/dL Magnesium 1.9 (1.8-2.4) mg/dL Total Bilirubin 0.7 (0.2-1.0) mg/dL AST 34 (15-37) U/L ALT 29 (14-59) U/L Alkaline Phosphatase 49 (46-116) U/L Total Protein 5.6 L (6.4-8.2) g/dl Albumin 2.7 L (3.4-5.0) g/dl Globulin 2.9 gm/dL Albumin/Globulin Ratio 0.9 L (1-2) Result Diagrams: 03/12/21 05:22 03/12/21 05:22 Sepsis Event Note - Evaluation Sepsis Screening Result: No Definite Risk - Focused Exam Vital Signs: Vital Signs Temp Resp BP Pulse Ox Pulse Ox 03/12/21 06:50 90 L 03/12/21 06:30 93 L 03/12/21 04:00 97.6 F 16 126/51 L 97 03/12/21 00:00 97.6 F 16 94/46 L 97 03/11/21 20:43 95 - Problem List Review Problem List Initiated/Reviewed/Updated: No - My Orders Last 24 Hours: My Active Orders 03/11/21 08:34 SCD [Sequential Compression Device] [OM.PC] Routine 03/11/21 08:35 Antiembolic Devices [RC] 03/11/21 09:00 Famotidine [Pepcid] 20 mg IVPUSH BID Tiotropium [place] [Spiriva Respimat] 0 gm INH DAILY allopurinoL [Zyloprim] 100 mg PO DAILY 03/11/21 13:30 Carboxymethylcellulose Sodium [Refresh Liquigel 1%] 0 ml EYEBOTH ASDIRECTED PRN 03/11/21 19:00 Piperacillin/Tazobactam [Piperacil-Tazobact] 4.5 gm Sodium Chloride 0.9% [Normal Saline] 100 ml IV Q8H 03/11/21 21:00 Montelukast [Singulair] 10 mg PO BEDTIME Patient's Own Medication [Ptom] 0 each INH BID 03/12/21 06:00 Levothyroxine [Synthroid] 88 mcg PO ACBREAKFAST 03/12/21 Breakfast Full Liquid Diet [DIET] 03/12/21 07:45 Lactated Ringers [Ringers, Lactated] 1,000 ml IV ASDIRECTED 03/12/21 08:05 Admission Status [Patient Status] [ADT] Routine Cardiac Monitoring [RC] . DIRECTED 03/12/21 09:00 Hydroxychloroquine [Plaquenil] 200 mg PO DAILY Patient's Own Medication [Ptom] 0 each PO DAILY Venlafaxine [Effexor XR] 75 mg PO DAILY 03/13/21 05:11 CBC WITH AUTO DIFF [HEME] AM COMPREHENSIVE METABOLIC PN,CMP [CHEM] AM MAGNESIUM [CHEM] AM PHOSPHORUS [CHEM] AM 03/14/21 05:11 CBC WITH AUTO DIFF [HEME] AM COMPREHENSIVE METABOLIC PN,CMP [CHEM] AM MAGNESIUM [CHEM] AM PHOSPHORUS [CHEM] AM 03/15/21 05:11 CBC WITH AUTO DIFF [HEME] AM COMPREHENSIVE METABOLIC PN,CMP [CHEM] AM MAGNESIUM [CHEM] AM PHOSPHORUS [CHEM] AM 03/16/21 05:11 MAGNESIUM [CHEM] AM PHOSPHORUS [CHEM] AM - Assessment Assessment:: 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 Stable - Plan Plan:: - Incentive spirometer - Continue Ambulation today - Full liquid diet - Replete Phos - Continue antibiotics for intraabdominal infection due to presence of necrotic bowel - Awaiting return of bowel function - Med/Surg status today
[2021-03-12] MEDS: Hydroxychloroquine 200 MG Tab PO SCH (08:17)
[2021-03-12] MEDS: Venlafaxine 75 MG Cap.ER PO SCH (08:18)
[2021-03-12] MEDS: Acetaminophen/oxyCODONE 325-5 MG Tab PO PRN ×3 (08:18→20:23)
[2021-03-12] MEDS: Allopurinol 100 MG Tab PO SCH (08:19)
[2021-03-12] MEDS: Famotidine 20 MG/2 ML SDV IVPUSH SCH ×2 (08:19→20:24)
[2021-03-12] MEDS: ROFLUMILAST 500 MCG PO SCH ×2 (08:35→09:35)
[2021-03-12] MEDS: FLUTICASONE INH SCH ×2 (09:10→20:18)
[2021-03-12] MEDS: SALMETEROL INH SCH ×2 (09:10→20:18)
[2021-03-12] MEDS: Tiotropium Bromide 4 GM Inhalation Spray (2.5mcg/1 dose; 10 doses) INH SCH (09:10)
[2021-03-12] MEDS: Montelukast 10 MG Tab PO SCH (20:24)
[2021-03-13] MEDS: Piperacillin/Tazobactam 4.5 GM in Sodium Chloride 0.9% 100 ML IV SCH ×3 (02:51→18:00)
[2021-03-13] MEDS: Levothyroxine 88 MCG Tab PO SCH (06:07)
[2021-03-13] MEDS: Lactated Ringers 1,000 ML IV SCH (06:16)
[2021-03-13] MEDS: Acetaminophen/oxyCODONE 325-5 MG Tab PO PRN ×3 (07:26→19:49)
[2021-03-13] MEDS: Famotidine 20 MG/2 ML SDV IVPUSH SCH ×2 (08:01→20:20)
[2021-03-13] MEDS: Venlafaxine 75 MG Cap.ER PO SCH (08:05)
[2021-03-13] MEDS: Allopurinol 100 MG Tab PO SCH (08:05)
[2021-03-13] MEDS: ROFLUMILAST 500 MCG PO SCH (08:06)
[2021-03-13] MEDS: Hydroxychloroquine 200 MG Tab PO SCH (08:06)
[2021-03-13] MEDS: Potassium Chloride 10 MEQ in Premix Bag 1 BAG IV SCH ×3 (08:09→10:38)
[2021-03-13] MEDS: SALMETEROL INH SCH ×2 (08:12→20:11)
[2021-03-13] MEDS: Tiotropium Bromide 4 GM Inhalation Spray (2.5mcg/1 dose; 10 doses) INH SCH (08:12)
[2021-03-13] MEDS: FLUTICASONE INH SCH ×2 (08:12→20:11)
--- NOTE | 2021-03-13 12:43 | PCM.PN ---
- General Info Date of Service: 03/13/21 Admission Dx/Problem (Free Text): Admission Diagnosis/Problem Admission Diagnosis/Problem Volvulus of colon Subjective Update: No flatus of BM yet. Patient burping a lot. Tolerated FLD yesterday and drinking fluids. Ambulated. Continues to desaturate especially at night therefore the RN had to put oxygen back on her to 2L by NC. Functional Status: Reports: Pain Controlled, Tolerating Diet, Ambulating, Urinating - Review of Systems General: Reports: No Symptoms HEENT: Reports: No Symptoms Pulmonary: Reports: Other (desaturations) Cardiovascular: Reports: No Symptoms Gastrointestinal: Reports: Abdominal Pain (edwin-incisional) Genitourinary: Reports: No Symptoms Musculoskeletal: Reports: No Symptoms Skin: Reports: No Symptoms Neurological: Reports: No Symptoms Psychiatric: Reports: No Symptoms - Patient Data Vitals - Most Recent: Last Vital Signs Temp 97.5 F 03/13/21 11:40 Pulse 75 03/13/21 11:40 Resp 17 03/13/21 11:40 BP 144/58 H 03/13/21 11:40 Pulse Ox 98 03/13/21 11:41 Weight - Most Recent: 54.126 kg I&O - Last 24 Hours: Intake & Output 03/12/21 03/13/21 03/13/21 22:59 06:59 14:59 Intake Total 1940 512 260 Output Total 800 1000 525 Balance 1140 488 265 Lab Results Last 24 Hours: Laboratory Results - last 24 hr 03/13/21 03/13/21 Range/Units 04:50 04:50 WBC 6.89 (3.98-10.04) K/mm3 RBC 3.39 L (3.98-5.22) M/mm3 Hgb 10.9 L (11.2-15.7) gm/dl Hct 34.0 L (34.1-44.9) % MCV 100.3 H (79.4-94.8) fl MCH 32.2 (25.6-32.2) pg MCHC 32.1 L (32.2-35.5) g/dl RDW Std Deviation 49.6 H (36.4-46.3) fL Plt Count 248 (182-369) K/mm3 MPV 9.7 (9.4-12.3) fl Neut % (Auto) 71.0 (34.0-71.1) % Lymph % (Auto) 16.3 L (19.3-51.7) % Iron % (Auto) 9.9 (4.7-12.5) % Eos % (Auto) 2.3 (0.7-5.8) Baso % (Auto) 0.4 (0.1-1.2) % Neut # (Auto) 4.89 (1.56-6.13) K/mm3 Lymph # (Auto) 1.12 L (1.18-3.74) K/mm3 Iron # (Auto) 0.68 H (0.24-0.36) K/mm3 Eos # (Auto) 0.16 (0.04-0.36) K/mm3 Baso # (Auto) 0.03 (0.01-0.08) K/mm3 Sodium 140 (136-145) mEq/L Potassium 3.5 (3.5-5.1) mEq/L Chloride 104 (98-107) mEq/L Carbon Dioxide 29 (21-32) mEq/L Anion Gap 10.5 (5-15) BUN 5 L (7-18) mg/dL Creatinine 0.8 (0.55-1.02) mg/dL Est Cr Clr Drug Dosing 43.64 mL/min Estimated GFR (MDRD) > 60 (>60) mL/min BUN/Creatinine Ratio 6.3 L (14-18) Glucose 84 (70-99) mg/dL Calcium 7.6 L (8.5-10.1) mg/dL Phosphorus 2.9 (2.6-4.7) mg/dL Magnesium 1.9 (1.8-2.4) mg/dL Total Bilirubin 0.5 (0.2-1.0) mg/dL AST 30 (15-37) U/L ALT 28 (14-59) U/L Alkaline Phosphatase 49 (46-116) U/L Total Protein 5.3 L (6.4-8.2) g/dl Albumin 2.6 L (3.4-5.0) g/dl Globulin 2.7 gm/dL Albumin/Globulin Ratio 1.0 (1-2) Med Orders - Current: Current Medications Allopurinol (Allopurinol 100 Mg Tab) 100 mg PO DAILY [facility] Last Admin: 03/13/21 08:05 Dose: 100 mg Documented by: Artificial Tears (Carboxymethylcellulose Sodium 1% Ophth Gel 15 Ml Bottle) 0 ml EYEBOTH ASDIRECTED PRN PRN Reason: Dry Eyes Last Admin: 03/11/21 14:19 Dose: 1 drop Documented by: Famotidine (Famotidine 20 Mg/2 Ml Sdv) 20 mg IVPUSH BID [facility] Last Admin: 03/13/21 08:01 Dose: 20 mg Documented by: Hydromorphone HCl (Hydromorphone 0.5 Mg/0.5 Ml Syringe) 0.5 mg IVPUSH Q2H PRN PRN Reason: Pain (severe 7-10) Last Admin: 03/12/21 04:11 Dose: 0.5 mg Documented by: Hydroxychloroquine Sulfate (Hydroxychloroquine 200 Mg Tab) 200 mg PO DAILY [facility] Last Admin: 03/13/21 08:06 Dose: 200 mg Documented by: Piperacillin Sod/Tazobactam (Sod 4.5 gm/ Sodium Chloride) 100 mls @ 25 mls/hr IV Q8H [facility] Last Admin: 03/13/21 11:58 Dose: 25 mls/hr Documented by: Levothyroxine Sodium (Levothyroxine 88 Mcg Tab) 88 mcg PO ACBREAKFAST [facility] Last Admin: 03/13/21 06:07 Dose: 88 mcg Documented by: Montelukast Sodium (Montelukast 10 Mg Tab) 10 mg PO BEDTIME [facility] Last Admin: 03/12/21 20:24 Dose: 10 mg Documented by: Ondansetron HCl (Ondansetron 4 Mg/2 Ml Sdv) 4 mg IVPUSH Q6H PRN PRN Reason: Nausea/Vomiting Oxycodone/Acetaminophen (Acetaminophen/Oxycodone 325-5 Mg Tab) 1 tab PO Q4H PRN PRN Reason: Pain (moderate 4-6) Last Admin: 03/13/21 12:10 Dose: 1 tab Documented by: Wixela Inhaler 250 Mcg/50 Mcg Patient 's Own Med 0 each INH BID [facility] Last Admin: 03/13/21 08:12 Dose: 1 each Documented by: Roflumilast 500 Mcg Tablet Patient's Own Med 0 each PO DAILY [facility] Last Admin: 03/13/21 08:06 Dose: 1 each Documented by: Sodium Chloride (Sodium Chloride 0.9% 10 Ml Syringe) 10 ml FLUSH ASDIRECTED PRN PRN Reason: Keep Vein Open Last Admin: 03/10/21 21:57 Dose: 10 ml Documented by: Tiotropium [place] (Tiotropium [place] 4 Gm Inhalation [place] (2.5mcg/1 Dose; 10 Doses)) 0 gm INH DAILY [facility] Last Admin: 03/13/21 08:12 Dose: 2 puff Documented by: Venlafaxine HCl (Venlafaxine 75 Mg Cap.Er) 75 mg PO DAILY [facility] Last Admin: 03/13/21 08:05 Dose: 75 mg Documented by: Discontinued Medications Albuterol (Albuterol 0.083% 2.5 Mg/3 Ml Neb Soln) 2.5 mg NEB ONETIME ONE Stop: 03/11/21 00:12 Last Admin: 03/11/21 00:23 Dose: 2.5 mg Documented by: Albuterol (Albuterol 0.083% 2.5 Mg/3 Ml Neb Soln) 2.5 mg NEB ONETIME PRN PRN Reason: COPD Bacitracin (Bacitracin Oint 15 Gm Tube) Confirm Administered Dose 15 gm .ROUTE .STK-MED ONE Stop: 03/11/21 03:04 Bupivacaine HCl/Epinephrine Bitart (Bupivacaine 0.5%/Epinephrine 1:200,000 50 Ml Mdv) Confirm Administered Dose 50 ml .ROUTE .STK-MED ONE Stop: 03/11/21 00:46 Last Admin: 03/11/21 01:28 Dose: 5 ml Documented by: Dexamethasone (Dexamethasone 4 Mg/Ml 5 Ml Mdv) Confirm Administered Dose 20 mg .ROUTE .STK-MED ONE Stop: 03/11/21 00:33 Diphenhydramine HCl (Diphenhydramine 50 Mg/Ml Sdv) 25 mg IVPUSH Q6H PRN PRN Reason: pruritis Ephedrine Sulfate (Ephedrine 50 Mg/Ml Sdv) 5 mg IVPUSH ASDIRECTED PRN PRN Reason: Hypotension Ephedrine Sulfate (Ephedrine 50 Mg/Ml Sdv) Confirm Administered Dose 50 mg .ROUTE .STK-MED ONE Stop: 03/11/21 02:31 Fentanyl (Fentanyl 250 Mcg/5 Ml Sdv) Confirm Administered Dose 250 mcg .ROUTE .STK-MED ONE Stop: 03/11/21 00:34 Fentanyl (Fentanyl 100 Mcg/2 Ml Sdv) 50 mcg IVPUSH Q20M PRN PRN Reason: Pain Glycopyrrolate (Glycopyrrolate 0.2 Mg/Ml Sdv) Confirm Administered Dose 1 mg .ROUTE .STK-MED ONE Stop: 03/11/21 01:45 Hydromorphone HCl (Hydromorphone 0.5 Mg/0.5 Ml Syringe) 0.5 mg IVPUSH ONETIME ONE Stop: 03/10/21 21:46 Last Admin: 03/10/21 21:57 Dose: 0.5 mg Documented by: Hydromorphone HCl (Hydromorphone 0.5 Mg/0.5 Ml Syringe) 0.5 mg IVPUSH ONETIME ONE Stop: 03/10/21 22:44 Last Admin: 03/10/21 22:51 Dose: 0.5 mg Documented by: Hydromorphone HCl (Hydromorphone 0.5 Mg/0.5 Ml Syringe) 0.5 mg IVPUSH Q10M PRN PRN Reason: Pain (severe 7-10) Hydromorphone HCl (Hydromorphone 0.5 Mg/0.5 Ml Syringe) Confirm Administered Dose 0.5 mg .ROUTE .STK-MED ONE Stop: 03/11/21 01:43 Sodium Chloride (Normal Saline) 1,000 mls @ 1,000 mls/hr IV .BOLUS STA Stop: 03/10/21 22:43 Last Admin: 03/10/21 21:56 Dose: 1,000 mls/hr Documented by: Sodium Chloride (Normal Saline) 100 mls @ 60 drops/hr IV ASDIRECTED [facility] Last Admin: 03/10/21 23:30 Dose: 60 drops/hr Documented by: Piperacillin Sod/Tazobactam (Sod 4.5 gm/ Sodium Chloride) 100 mls @ 200 mls/hr IV ONETIME ONE Stop: 03/11/21 00:16 Last Admin: 03/11/21 00:00 Dose: 200 mls/hr Documented by: Lidocaine HCl (Xylocaine-Mpf 1%) Confirm Administered Dose 4 mls @ as directed .ROUTE .STK-MED ONE Stop: 03/11/21 00:33 Lactated Ringer's (Ringers, Lactated) Confirm Administered Dose 2,000 mls @ as directed .ROUTE .STK-MED ONE Stop: 03/11/21 00:33 Lactated Ringer's (Ringers, Lactated) Confirm Administered Dose 1,000 mls @ as directed .ROUTE .STK-MED ONE Stop: 03/11/21 02:28 Lactated Ringer's (Ringers, Lactated) 1,000 mls @ 50 mls/hr IV ASDIRECTED [facility] Last Admin: 03/12/21 06:09 Dose: 75 mls/hr Documented by: Piperacillin Sod/Tazobactam (Sod 4.5 gm/ Sodium Chloride) 100 mls @ 25 mls/hr IV ONETIME ONE Stop: 03/11/21 14:59 Last Admin: 03/11/21 11:08 Dose: 25 mls/hr Documented by: Lactated Ringer's (Ringers, Lactated) 1,000 mls @ 50 mls/hr IV ASDIRECTED [facility] Last Admin: 03/13/21 06:16 Dose: 50 mls/hr Documented by: Potassium Chloride 10 meq/ (Premix) 100 mls @ 100 mls/hr IV Q1H [facility] Stop: 03/13/21 10:59 Last Admin: 03/13/21 10:38 Dose: 100 mls/hr Documented by: Iopamidol (Iopamidol 612 Mg/Ml 100 Ml Bottle) 100 ml IVPUSH ONETIME ONE Stop: 03/10/21 21:54 Last Admin: 03/10/21 23:30 Dose: 100 ml Documented by: Labetalol HCl (Labetalol 100 Mg/20 Ml Mdv) Confirm Administered Dose 100 mg .ROUTE .STK-MED ONE Stop: 03/11/21 02:54 Lidocaine/Epinephrine (Lidocaine 1% With Epinephrine 1:100,000 10 Ml Mdv) Confirm Administered Dose 20 ml .ROUTE .STK-MED ONE Stop: 03/11/21 00:46 Last Admin: 03/11/21 01:28 Dose: 5 ml Documented by: Miscellaneous Medication (Phenylephrine Hcl In 0.9% Nacl 1 Mg/10 Ml Syringe) Confirm Administered Dose 1 mg .ROUTE .STK-MED ONE Stop: 03/11/21 00:33 Miscellaneous Medication (Phenylephrine Hcl In 0.9% Nacl 1 Mg/10 Ml Syringe) 0.1 mg IVPUSH Q10M PRN PRN Reason: Hypotension Mometasone Furoate/Formoterol Fumar (Formoterol/Mometasone 200-5 Mcg 8.8 Gm Inhaler) 2 puff IH BID [facility] Last Admin: 03/11/21 12:05 Dose: Not Given Documented by: Neostigmine Methylsulfate (Neostigmine Methylsulfate 5 Mg/5 Ml Syringe) Confirm Administered Dose 5 mg .ROUTE .STK-MED ONE Stop: 03/11/21 01:45 Ondansetron HCl (Ondansetron 4 Mg/2 Ml Sdv) 4 mg IVPUSH ONETIME ONE Stop: 03/10/21 21:45 Last Admin: 03/10/21 21:56 Dose: 4 mg Documented by: Ondansetron HCl (Ondansetron 4 Mg/2 Ml Sdv) Confirm Administered Dose 4 mg .ROUTE .STK-MED ONE Stop: 03/11/21 00:33 Propofol (Propofol 200 Mg/20 Ml Sdv) Confirm Administered Dose 200 mg .ROUTE .STK-MED ONE Stop: 03/11/21 00:33 Rocuronium [place] (Rocuronium 50 Mg/5 Ml Vial) Confirm Administered Dose 50 mg .ROUTE .STK-MED ONE Stop: 03/11/21 00:33 Sodium Chloride (Sodium Chloride 0.9% 10 Ml Syringe) 10 ml FLUSH BOLUS [facility] Last Admin: 03/10/21 23:30 Dose: 10 ml Documented by: Sodium Phosphate (Phosphorus #1 250 Mg Tab) 500 mg PO ONETIME ONE Stop: 03/12/21 07:27 Last Admin: 03/12/21 08:18 Dose: 500 mg Documented by: - Exam Quality Assessment: Supplemental Oxygen Urinary Catheter Total Time: 0Days 11Hours General: Alert, Oriented, Cooperative Lungs: Normal Respiratory Effort Cardiovascular: Regular Rate, Regular Rhythm, No Murmurs GI/Abdominal Exam: Soft, Distended (mildly), Tender (appropriately around the incision) Wound/Incisions: Dressing Dry and Intact - Patient Data Lab Results Last 24 hrs: Laboratory Results - last 24 hr 03/13/21 03/13/21 Range/Units 04:50 04:50 WBC 6.89 (3.98-10.04) K/mm3 RBC 3.39 L (3.98-5.22) M/mm3 Hgb 10.9 L (11.2-15.7) gm/dl Hct 34.0 L (34.1-44.9) % MCV 100.3 H (79.4-94.8) fl MCH 32.2 (25.6-32.2) pg MCHC 32.1 L (32.2-35.5) g/dl RDW Std Deviation 49.6 H (36.4-46.3) fL Plt Count 248 (182-369) K/mm3 MPV 9.7 (9.4-12.3) fl Neut % (Auto) 71.0 (34.0-71.1) % Lymph % (Auto) 16.3 L (19.3-51.7) % Iron % (Auto) 9.9 (4.7-12.5) % Eos % (Auto) 2.3 (0.7-5.8) Baso % (Auto) 0.4 (0.1-1.2) % Neut # (Auto) 4.89 (1.56-6.13) K/mm3 Lymph # (Auto) 1.12 L (1.18-3.74) K/mm3 Iron # (Auto) 0.68 H (0.24-0.36) K/mm3 Eos # (Auto) 0.16 (0.04-0.36) K/mm3 Baso # (Auto) 0.03 (0.01-0.08) K/mm3 Sodium 140 (136-145) mEq/L Potassium 3.5 (3.5-5.1) mEq/L Chloride 104 (98-107) mEq/L Carbon Dioxide 29 (21-32) mEq/L Anion Gap 10.5 (5-15) BUN 5 L (7-18) mg/dL Creatinine 0.8 (0.55-1.02) mg/dL Est Cr Clr Drug Dosing 43.64 mL/min Estimated GFR (MDRD) > 60 (>60) mL/min BUN/Creatinine Ratio 6.3 L (14-18) Glucose 84 (70-99) mg/dL Calcium 7.6 L (8.5-10.1) mg/dL Phosphorus 2.9 (2.6-4.7) mg/dL Magnesium 1.9 (1.8-2.4) mg/dL Total Bilirubin 0.5 (0.2-1.0) mg/dL AST 30 (15-37) U/L ALT 28 (14-59) U/L Alkaline Phosphatase 49 (46-116) U/L Total Protein 5.3 L (6.4-8.2) g/dl Albumin 2.6 L (3.4-5.0) g/dl Globulin 2.7 gm/dL Albumin/Globulin Ratio 1.0 (1-2) Result Diagrams: 03/13/21 04:50 03/13/21 04:50 Sepsis Event Note - Evaluation Sepsis Screening Result: No Definite Risk - Focused Exam Vital Signs: Vital Signs Temp Pulse Resp BP Pulse Ox Pulse Ox 03/13/21 11:41 98 03/13/21 11:40 97.5 F 75 17 144/58 H 98 03/13/21 08:12 92 L 03/13/21 07:12 97.8 F 71 16 143/58 H 91 L 03/13/21 04:09 97 F 82 17 140/59 L 91 L - Problem List Review Problem List Initiated/Reviewed/Updated: No - My Orders Last 24 Hours: My Active Orders 03/14/21 05:11 BASIC METABOLIC PANEL,BMP [CHEM] AM MAGNESIUM [CHEM] AM PHOSPHORUS [CHEM] AM 03/15/21 05:11 BASIC METABOLIC PANEL,BMP [CHEM] AM MAGNESIUM [CHEM] AM PHOSPHORUS [CHEM] AM 03/16/21 05:11 BASIC METABOLIC PANEL,BMP [CHEM] AM MAGNESIUM [CHEM] AM PHOSPHORUS [CHEM] AM 03/17/21 05:11 BASIC METABOLIC PANEL,BMP [CHEM] AM 03/18/21 05:11 BASIC METABOLIC PANEL,BMP [CHEM] AM - Assessment Assessment:: 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 Stable - Plan Plan:: - Incentive spirometer - Continue Ambulation today - Full liquid diet as tolerated - Replete Potasium - Continue antibiotics for intraabdominal infection due to presence of necrotic bowel - Awaiting return of bowel function. I discussed with the patient that this co uld take several days. i encouraged her to keep walking and using IS. Dispo pending JUSTIN
[2021-03-13] MEDS: Montelukast 10 MG Tab PO SCH (20:20)
[2021-03-14] MEDS: Acetaminophen/oxyCODONE 325-5 MG Tab PO PRN ×2 (04:23→14:49)
[2021-03-14] MEDS: Piperacillin/Tazobactam 4.5 GM in Sodium Chloride 0.9% 100 ML IV SCH (04:23)
[2021-03-14] MEDS: Levothyroxine 88 MCG Tab PO SCH (06:15)
[2021-03-14] MEDS ORDERED: Magnesium Sulfate/Water 2 GM in Premix Bag 1 BAG IV ONE (07:30)
--- NOTE | 2021-03-14 07:52 | PCM.PN ---
- General Info Date of Service: 03/14/21 Admission Dx/Problem (Free Text): Admission Diagnosis/Problem Admission Diagnosis/Problem Volvulus of colon Subjective Update: Patient feeling well. has been ambulating. pain is controlled, is tolerating full liquid diet. Has passed flatus. Functional Status: Reports: Pain Controlled, Tolerating Diet, Ambulating, Urinating - Review of Systems General: Reports: No Symptoms HEENT: Reports: No Symptoms Pulmonary: Reports: No Symptoms Cardiovascular: Reports: No Symptoms Gastrointestinal: Reports: Abdominal Pain (post op) Genitourinary: Reports: No Symptoms Musculoskeletal: Reports: No Symptoms Skin: Reports: No Symptoms Neurological: Reports: No Symptoms - Patient Data Vitals - Most Recent: Last Vital Signs Temp 96.9 F 03/14/21 06:17 Pulse 68 03/14/21 06:17 Resp 16 03/14/21 06:17 BP 134/58 L 03/14/21 06:17 Pulse Ox 94 L 03/14/21 06:17 Weight - Most Recent: 53.977 kg I&O - Last 24 Hours: Intake & Output 03/13/21 03/14/21 03/14/21 22:59 06:59 14:59 Intake Total 1240 600 Balance 1240 600 Lab Results Last 24 Hours: Laboratory Results - last 24 hr 03/14/21 Range/Units 05:30 Sodium 141 (136-145) mEq/L Potassium 3.8 (3.5-5.1) mEq/L Chloride 105 (98-107) mEq/L Carbon Dioxide 29 (21-32) mEq/L Anion Gap 10.8 (5-15) BUN 4 L (7-18) mg/dL Creatinine 0.8 (0.55-1.02) mg/dL Est Cr Clr Drug Dosing 43.64 mL/min Estimated GFR (MDRD) > 60 (>60) mL/min BUN/Creatinine Ratio 5.0 L (14-18) Glucose 95 (70-99) mg/dL Calcium 8.2 L (8.5-10.1) mg/dL Phosphorus 3.4 (2.6-4.7) mg/dL Magnesium 1.6 L (1.8-2.4) mg/dL Med Orders - Current: Current Medications Allopurinol (Allopurinol 100 Mg Tab) 100 mg PO DAILY [facility] Last Admin: 03/13/21 08:05 Dose: 100 mg Documented by: Artificial Tears (Carboxymethylcellulose Sodium 1% Ophth Gel 15 Ml Bottle) 0 ml EYEBOTH ASDIRECTED PRN PRN Reason: Dry Eyes Last Admin: 03/11/21 14:19 Dose: 1 drop Documented by: Famotidine (Famotidine 20 Mg/2 Ml Sdv) 20 mg IVPUSH BID [facility] Last Admin: 03/13/21 20:20 Dose: 20 mg Documented by: Hydromorphone HCl (Hydromorphone 0.5 Mg/0.5 Ml Syringe) 0.5 mg IVPUSH Q2H PRN PRN Reason: Pain (severe 7-10) Last Admin: 03/12/21 04:11 Dose: 0.5 mg Documented by: Hydroxychloroquine Sulfate (Hydroxychloroquine 200 Mg Tab) 200 mg PO DAILY [facility] Last Admin: 03/13/21 08:06 Dose: 200 mg Documented by: Magnesium Sulfate 2 gm/ Premix 50 mls @ 25 mls/hr IV ONETIME ONE Stop: 03/14/21 09:29 Levothyroxine Sodium (Levothyroxine 88 Mcg Tab) 88 mcg PO ACBREAKFAST [facility] Last Admin: 03/14/21 06:15 Dose: 88 mcg Documented by: Montelukast Sodium (Montelukast 10 Mg Tab) 10 mg PO BEDTIME [facility] Last Admin: 03/13/21 20:20 Dose: 10 mg Documented by: Ondansetron HCl (Ondansetron 4 Mg/2 Ml Sdv) 4 mg IVPUSH Q6H PRN PRN Reason: Nausea/Vomiting Oxycodone/Acetaminophen (Acetaminophen/Oxycodone 325-5 Mg Tab) 1 tab PO Q4H PRN PRN Reason: Pain (moderate 4-6) Last Admin: 03/14/21 04:23 Dose: 1 tab Documented by: Wixela Inhaler 250 Mcg/50 Mcg Patient 's Own Med 0 each INH BID [facility] Last Admin: 03/13/21 20:11 Dose: 1 each Documented by: Roflumilast 500 Mcg Tablet Patient's Own Med 0 each PO DAILY [facility] Last Admin: 03/13/21 08:06 Dose: 1 each Documented by: Polyethylene Glycol (Polyethylene Glycol 3350 Powder 17 Gm Packet) 17 gm PO DAILY [facility] Sodium Chloride (Sodium Chloride 0.9% 10 Ml Syringe) 10 ml FLUSH ASDIRECTED PRN PRN Reason: Keep Vein Open Last Admin: 03/10/21 21:57 Dose: 10 ml Documented by: Tiotropium [place] (Tiotropium [place] 4 Gm Inhalation [place] (2.5mcg/1 Dose; 10 Doses)) 0 gm INH DAILY [facility] Last Admin: 03/13/21 08:12 Dose: 2 puff Documented by: Venlafaxine HCl (Venlafaxine 75 Mg Cap.Er) 75 mg PO DAILY [facility] Last Admin: 03/13/21 08:05 Dose: 75 mg Documented by: Discontinued Medications Albuterol (Albuterol 0.083% 2.5 Mg/3 Ml Neb Soln) 2.5 mg NEB ONETIME ONE Stop: 03/11/21 00:12 Last Admin: 03/11/21 00:23 Dose: 2.5 mg Documented by: Albuterol (Albuterol 0.083% 2.5 Mg/3 Ml Neb Soln) 2.5 mg NEB ONETIME PRN PRN Reason: COPD Bacitracin (Bacitracin Oint 15 Gm Tube) Confirm Administered Dose 15 gm .ROUTE .STK-MED ONE Stop: 03/11/21 03:04 Bupivacaine HCl/Epinephrine Bitart (Bupivacaine 0.5%/Epinephrine 1:200,000 50 Ml Mdv) Confirm Administered Dose 50 ml .ROUTE .STK-MED ONE Stop: 03/11/21 00:46 Last Admin: 03/11/21 01:28 Dose: 5 ml Documented by: Dexamethasone (Dexamethasone 4 Mg/Ml 5 Ml Mdv) Confirm Administered Dose 20 mg .ROUTE .STK-MED ONE Stop: 03/11/21 00:33 Diphenhydramine HCl (Diphenhydramine 50 Mg/Ml Sdv) 25 mg IVPUSH Q6H PRN PRN Reason: pruritis Ephedrine Sulfate (Ephedrine 50 Mg/Ml Sdv) 5 mg IVPUSH ASDIRECTED PRN PRN Reason: Hypotension Ephedrine Sulfate (Ephedrine 50 Mg/Ml Sdv) Confirm Administered Dose 50 mg .R OUTE .STK-MED ONE Stop: 03/11/21 02:31 Fentanyl (Fentanyl 250 Mcg/5 Ml Sdv) Confirm Administered Dose 250 mcg .ROUTE .STK-MED ONE Stop: 03/11/21 00:34 Fentanyl (Fentanyl 100 Mcg/2 Ml Sdv) 50 mcg IVPUSH Q20M PRN PRN Reason: Pain Glycopyrrolate (Glycopyrrolate 0.2 Mg/Ml Sdv) Confirm Administered Dose 1 mg .ROUTE .STK-MED ONE Stop: 03/11/21 01:45 Hydromorphone HCl (Hydromorphone 0.5 Mg/0.5 Ml Syringe) 0.5 mg IVPUSH ONETIME ONE Stop: 03/10/21 21:46 Last Admin: 03/10/21 21:57 Dose: 0.5 mg Documented by: Hydromorphone HCl (Hydromorphone 0.5 Mg/0.5 Ml Syringe) 0.5 mg IVPUSH ONETIME ONE Stop: 03/10/21 22:44 Last Admin: 03/10/21 22:51 Dose: 0.5 mg Documented by: Hydromorphone HCl (Hydromorphone 0.5 Mg/0.5 Ml Syringe) 0.5 mg IVPUSH Q10M PRN PRN Reason: Pain (severe 7-10) Hydromorphone HCl (Hydromorphone 0.5 Mg/0.5 Ml Syringe) Confirm Administered Dose 0.5 mg .ROUTE .STK-MED ONE Stop: 03/11/21 01:43 Sodium Chloride (Normal Saline) 1,000 mls @ 1,000 mls/hr IV .BOLUS STA Stop: 03/10/21 22:43 Last Admin: 03/10/21 21:56 Dose: 1,000 mls/hr Documented by: Sodium Chloride (Normal Saline) 100 mls @ 60 drops/hr IV ASDIRECTED [facility] Last Admin: 03/10/21 23:30 Dose: 60 drops/hr Documented by: Piperacillin Sod/Tazobactam (Sod 4.5 gm/ Sodium Chloride) 100 mls @ 200 mls/hr IV ONETIME ONE Stop: 03/11/21 00:16 Last Admin: 03/11/21 00:00 Dose: 200 mls/hr Documented by: Lidocaine HCl (Xylocaine-Mpf 1%) Confirm Administered Dose 4 mls @ as directed .ROUTE .STK-MED ONE Stop: 03/11/21 00:33 Lactated Ringer's (Ringers, Lactated) Confirm Administered Dose 2,000 mls @ as directed .ROUTE .STK-MED ONE Stop: 03/11/21 00:33 Lactated Ringer's (Ringers, Lactated) Confirm Administered Dose 1,000 mls @ as directed .ROUTE .STK-MED ONE Stop: 03/11/21 02:28 Lactated Ringer's (Ringers, Lactated) 1,000 mls @ 50 mls/hr IV ASDIRECTED [facility] Last Admin: 03/12/21 06:09 Dose: 75 mls/hr Documented by: Piperacillin Sod/Tazobactam (Sod 4.5 gm/ Sodium Chloride) 100 mls @ 25 mls/hr I V ONETIME ONE Stop: 03/11/21 14:59 Last Admin: 03/11/21 11:08 Dose: 25 mls/hr Documented by: Piperacillin Sod/Tazobactam (Sod 4.5 gm/ Sodium Chloride) 100 mls @ 25 mls/hr IV Q8H [facility] Last Admin: 03/14/21 04:23 Dose: 25 mls/hr Documented by: Lactated Ringer's (Ringers, Lactated) 1,000 mls @ 50 mls/hr IV ASDIRECTED [facility] Last Admin: 03/13/21 06:16 Dose: 50 mls/hr Documented by: Potassium Chloride 10 meq/ (Premix) 100 mls @ 100 mls/hr IV Q1H [facility] Stop: 03/13/21 10:59 Last Admin: 03/13/21 10:38 Dose: 100 mls/hr Documented by: Iopamidol (Iopamidol 612 Mg/Ml 100 Ml Bottle) 100 ml IVPUSH ONETIME ONE Stop: 03/10/21 21:54 Last Admin: 03/10/21 23:30 Dose: 100 ml Documented by: Labetalol HCl (Labetalol 100 Mg/20 Ml Mdv) Confirm Administered Dose 100 mg .ROUTE .STK-MED ONE Stop: 03/11/21 02:54 Lidocaine/Epinephrine (Lidocaine 1% With Epinephrine 1:100,000 10 Ml Mdv) Confirm Administered Dose 20 ml .ROUTE .STK-MED ONE Stop: 03/11/21 00:46 Last Admin: 03/11/21 01:28 Dose: 5 ml Documented by: Miscellaneous Medication (Phenylephrine Hcl In 0.9% Nacl 1 Mg/10 Ml Syringe) C onfirm Administered Dose 1 mg .ROUTE .STK-MED ONE Stop: 03/11/21 00:33 Miscellaneous Medication (Phenylephrine Hcl In 0.9% Nacl 1 Mg/10 Ml Syringe) 0.1 mg IVPUSH Q10M PRN PRN Reason: Hypotension Mometasone Furoate/Formoterol Fumar (Formoterol/Mometasone 200-5 Mcg 8.8 Gm Inhaler) 2 puff IH BID [facility] Last Admin: 03/11/21 12:05 Dose: Not Given Documented by: Neostigmine Methylsulfate (Neostigmine Methylsulfate 5 Mg/5 Ml Syringe) Confirm Administered Dose 5 mg .ROUTE .STK-MED ONE Stop: 03/11/21 01:45 Ondansetron HCl (Ondansetron 4 Mg/2 Ml Sdv) 4 mg IVPUSH ONETIME ONE Stop: 03/10/21 21:45 Last Admin: 03/10/21 21:56 Dose: 4 mg Documented by: Ondansetron HCl (Ondansetron 4 Mg/2 Ml Sdv) Confirm Administered Dose 4 mg .ROUTE .STK-MED ONE Stop: 03/11/21 00:33 Propofol (Propofol 200 Mg/20 Ml Sdv) Confirm Administered Dose 200 mg .ROUTE .STK-MED ONE Stop: 03/11/21 00:33 Rocuronium [place] (Rocuronium 50 Mg/5 Ml Vial) Confirm Administered Dose 50 mg .ROUTE .STK-MED ONE Stop: 03/11/21 00:33 Sodium Chloride (Sodium Chloride 0.9% 10 Ml Syringe) 10 ml FLUSH BOLUS [facility] Last Admin: 03/10/21 23:30 Dose: 10 ml Documented by: Sodium Phosphate (Phosphorus #1 250 Mg Tab) 500 mg PO ONETIME ONE Stop: 03/12/21 07:27 Last Admin: 03/12/21 08:18 Dose: 500 mg Documented by: - Exam Quality Assessment: Supplemental Oxygen Urinary Catheter Total Time: 0Days 11Hours General: Alert, Oriented, Cooperative Lungs: Normal Respiratory Effort Cardiovascular: Regular Rate, Regular Rhythm, No Murmurs GI/Abdominal Exam: Soft, No Distention, Tender (mildly, around the incisions) - Patient Data Lab Results Last 24 hrs: Laboratory Results - last 24 hr 03/14/21 Range/Units 05:30 Sodium 141 (136-145) mEq/L Potassium 3.8 (3.5-5.1) mEq/L Chloride 105 (98-107) mEq/L Carbon Dioxide 29 (21-32) mEq/L Anion Gap 10.8 (5-15) BUN 4 L (7-18) mg/dL Creatinine 0.8 (0.55-1.02) mg/dL Est Cr Clr Drug Dosing 43.64 mL/min Estimated GFR (MDRD) > 60 (>60) mL/min BUN/Creatinine Ratio 5.0 L (14-18) Glucose 95 (70-99) mg/dL Calcium 8.2 L (8.5-10.1) mg/dL Phosphorus 3.4 (2.6-4.7) mg/dL Magnesium 1.6 L (1.8-2.4) mg/dL Result Diagrams: 03/13/21 04:50 03/14/21 05:30 Sepsis Event Note - Evaluation Sepsis Screening Result: No Definite Risk - Focused Exam Vital Signs: Vital Signs Temp Pulse Resp BP Pulse Ox Pulse Ox 03/14/21 06:17 96.9 F 68 16 134/58 L 94 L 03/13/21 20:19 97.9 F 73 18 143/56 H 93 L 03/13/21 20:12 93 L - Problem List Review Problem List Initiated/Reviewed/Updated: No - My Orders Last 24 Hours: My Active Orders 03/14/21 Breakfast Regular Diet [DIET] 03/14/21 07:30 Magnesium Sulfate/Water [Magnesium Sulfate in Water 2 GM/50 ML] 2 gm Premix Bag 1 bag IV ONETIME 03/14/21 09:00 polyethylene glycoL 3350 [MiraLAX] 17 gm PO DAILY 03/15/21 05:11 BASIC METABOLIC PANEL,BMP [CHEM] AM MAGNESIUM [CHEM] AM PHOSPHORUS [CHEM] AM 03/16/21 05:11 BASIC METABOLIC PANEL,BMP [CHEM] AM MAGNESIUM [CHEM] AM PHOSPHORUS [CHEM] AM 03/17/21 05:11 BASIC METABOLIC PANEL,BMP [CHEM] AM 03/18/21 05:11 BASIC METABOLIC PANEL,BMP [CHEM] AM - Assessment Assessment:: 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 Progressing well. - Plan Plan:: - Incentive spirometer - Continue Ambulation today - Advance to regular diet as patient now has bowel function - Replete Potasium - discontinue antibiotics today - Walk test today, if patient needs oxygen for home then we will arrange it. Dispo likely home today or tomorrow.
[2021-03-14] MEDS: SALMETEROL INH SCH (08:25)
[2021-03-14] MEDS: FLUTICASONE INH SCH (08:25)
[2021-03-14] MEDS: Tiotropium Bromide 4 GM Inhalation Spray (2.5mcg/1 dose; 10 doses) INH SCH (08:25)
[2021-03-14] MEDS: Venlafaxine 75 MG Cap.ER PO SCH (08:30)
[2021-03-14] MEDS: Famotidine 20 MG/2 ML SDV IVPUSH SCH (08:30)
[2021-03-14] MEDS: Allopurinol 100 MG Tab PO SCH (08:30)
[2021-03-14] MEDS: ROFLUMILAST 500 MCG PO SCH (08:40)
[2021-03-14] MEDS: Hydroxychloroquine 200 MG Tab PO SCH (08:40)
[2021-03-14] MEDS ORDERED: Polyethylene Glycol 3350 Powder 17 GM Packet PO SCH (09:00)
--- NOTE | 2021-03-14 19:53 | PCM.DCSUM1 ---
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 She underwent exploratory laparotomy, extended right hemicolectomy. She recovered well. Now pain is controlled, tolerating diet, passing flatus, ambulating. She will be discharged to home and follow up with me in 3 weeks. Diagnosis: Stroke: No - Discharge Data Discharge Date: 03/14/21 Discharge Disposition: Home, Self-Care 01 Condition: Good - Referral to Home Health Primary Care Physician: Padmini Soto MD - Patient Instructions Diet: Heart Healthy Diet Activity: No Lifting Over 10 Pounds (for 6 weeks) Driving: Do Not Drive (until off opioid pain medications) Showering/Bathing: May Shower, No Tub Bathing/Swimming Wound/Incision Care: Keep Operative Site/Wound Site Clean and Dry Notify Provider of: Fever, Increased Pain, Swelling and Redness, Drainage, Nausea and/or Vomiting Other/Special Instructions: - Take Tylenol or Ibuprofen. If pain gets worse, then take the prescribed Opioid pain medications. - Discharge Plan *PRESCRIPTION DRUG MONITORING PROGRAM REVIEWED*: No *COPY OF PRESCRIPTION DRUG MONITORING REPORT IN PATIENT DELMA: No Prescriptions/Med Rec: polyethylene glycoL 3350 [MiraLAX] 17 gm PO DAILY 30 Days #30 packet Acetaminophen/oxyCODONE [Percocet 325-5 MG] 1 tab PO Q6H PRN 5 Days #20 tablet PRN Reason: Pain (Severe 7-10) Home Medications: Home Meds allopurinoL [Zyloprim] 100 mg PO DAILY 05/03/14 [History] Fluticasone Propion/Salmeterol [Wixela 250-50 Inhub] 1 puff INH BID 03/11/21 [History] Hydroxychloroquine [Plaquenil] 200 mg PO DAILY 03/11/21 [History] Levothyroxine [Synthroid] 88 mcg PO ACBREAKFAST 03/11/21 [History] Methotrexate 7.5 mg PO WEEKLY 03/11/21 [History] Montelukast [Singulair] 10 mg PO BEDTIME 03/11/21 [History] Roflumilast [Daliresp] 500 mcg PO DAILY 03/11/21 [History] Tiotropium [place] [Spiriva Respimat] 2 puff PO DAILY 03/11/21 [History] Venlafaxine HCl [Venlafaxine ER] 75 mg PO DAILY 03/11/21 [History] Acetaminophen/oxyCODONE [Percocet 325-5 MG] 1 tab PO Q6H PRN 5 Days #20 tablet 03/14/21 [Rx] polyethylene glycoL 3350 [MiraLAX] 17 gm PO DAILY 30 Days #30 packet 03/14/21 [Rx] Oxygen Therapy Mode: Room Air Patient Handouts: Open Colectomy, Care After, Chronic Obstructive Pulmonary Disease, [id number], Open Colectomy, Sepsis, Self Care, Adult Forms: ED Department Discharge Referrals: Padmini Soto MD [Primary Care Provider] - (follow up as needed.) Chela Tafoya MD [Physician] - (3 weeks) - Discharge Summary/Plan Comment DC Time >30 min.: Yes - General Info Date of Service: 03/14/21 Admission Dx/Problem (Free Text: Admission Diagnosis/Problem Admission Diagnosis/Problem Volvulus of colon Subjective Update: Patient feeling well. has been ambulating. pain is controlled, is tolerating full liquid diet. Has passed flatus. Functional Status: Reports: Pain Controlled, Tolerating Diet, Ambulating, Urinating - Review of Systems General: Reports: No Symptoms HEENT: Reports: No Symptoms Pulmonary: Reports: No Symptoms Cardiovascular: Reports: No Symptoms Gastrointestinal: Reports: Abdominal Pain Genitourinary: Reports: No Symptoms Musculoskeletal: Reports: No Symptoms Skin: Reports: No Symptoms Neurological: Reports: No Symptoms Psychiatric: Reports: No Symptoms - Patient Data Vitals - Most Recent: Last Vital Signs Temp 97.3 F 03/14/21 16:00 Pulse 88 03/14/21 16:00 Resp 17 03/14/21 16:00 BP 146/64 H 03/14/21 16:00 Pulse Ox 92 L 03/14/21 16:00 Weight - Most Recent: 53.977 kg I&O - Last 24 hours: Intake & Output 03/14/21 03/14/21 03/14/21 06:59 14:59 22:59 Intake Total 616 087 7875 Balance 246 421 0957 Lab Results - Last 24 hrs: Laboratory Results - last 24 hr 03/14/21 Range/Units 05:30 Sodium 141 (136-145) mEq/L Potassium 3.8 (3.5-5.1) mEq/L Chloride 105 (98-107) mEq/L Carbon Dioxide 29 (21-32) mEq/L Anion Gap 10.8 (5-15) BUN 4 L (7-18) mg/dL Creatinine 0.8 (0.55-1.02) mg/dL Est Cr Clr Drug Dosing 43.64 mL/min Estimated GFR (MDRD) > 60 (>60) mL/min BUN/Creatinine Ratio 5.0 L (14-18) Glucose 95 (70-99) mg/dL Calcium 8.2 L (8.5-10.1) mg/dL Phosphorus 3.4 (2.6-4.7) mg/dL Magnesium 1.6 L (1.8-2.4) mg/dL Med Orders - Current: Current Medications Allopurinol (Allopurinol 100 Mg Tab) 100 mg PO DAILY [facility] Last Admin: 03/14/21 08:30 Dose: 100 mg Documented by: Artificial Tears (Carboxymethylcellulose Sodium 1% Ophth Gel 15 Ml Bottle) 0 ml EYEBOTH ASDIRECTED PRN PRN Reason: Dry Eyes Last Admin: 03/11/21 14:19 Dose: 1 drop Documented by: Hydromorphone HCl (Hydromorphone 0.5 Mg/0.5 Ml Syringe) 0.5 mg IVPUSH Q2H PRN PRN Reason: Pain (severe 7-10) Last Admin: 03/12/21 04:11 Dose: 0.5 mg Documented by: Hydroxychloroquine Sulfate (Hydroxychloroquine 200 Mg Tab) 200 mg PO DAILY [facility] Last Admin: 03/14/21 08:40 Dose: 200 mg Documented by: Levothyroxine Sodium (Levothyroxine 88 Mcg Tab) 88 mcg PO ACBREAKFAST [facility] Last Admin: 03/14/21 06:15 Dose: 88 mcg Documented by: Montelukast Sodium (Montelukast 10 Mg Tab) 10 mg PO BEDTIME [facility] Last Admin: 03/13/21 20:20 Dose: 10 mg Documented by: Ondansetron HCl (Ondansetron 4 Mg/2 Ml Sdv) 4 mg IVPUSH Q6H PRN PRN Reason: Nausea/Vomiting Oxycodone/Acetaminophen (Acetaminophen/Oxycodone 325-5 Mg Tab) 1 tab PO Q4H PRN PRN Reason: Pain (moderate 4-6) Last Admin: 03/14/21 14:49 Dose: 1 tab Documented by: Wixela Inhaler 250 Mcg/50 Mcg Patient 's Own Med 0 each INH BID [facility] Last Admin: 03/14/21 08:25 Dose: 1 each Documented by: Roflumilast 500 Mcg Tablet Patient's Own Med 0 each PO DAILY [facility] Last Admin: 03/14/21 08:40 Dose: 1 each Documented by: Polyethylene Glycol (Polyethylene Glycol 3350 Powder 17 Gm Packet) 17 gm PO DAILY [facility] Last Admin: 03/14/21 08:30 Dose: 17 gm Documented by: Sodium Chloride (Sodium Chloride 0.9% 10 Ml Syringe) 10 ml FLUSH ASDIRECTED PRN PRN Reason: Keep Vein Open Last Admin: 03/10/21 21:57 Dose: 10 ml Documented by: Tiotropium [place] (Tiotropium [place] 4 Gm Inhalation [place] (2.5mcg/1 Dose; 10 Doses)) 0 gm INH DAILY [facility] Last Admin: 03/14/21 08:25 Dose: 2 puff Documented by: Venlafaxine HCl (Venlafaxine 75 Mg Cap.Er) 75 mg PO DAILY [facility] Last Admin: 03/14/21 08:30 Dose: 75 mg Documented by: Discontinued Medications Albuterol (Albuterol 0.083% 2.5 Mg/3 Ml Neb Soln) 2.5 mg NEB ONETIME ONE Stop: 03/11/21 00:12 Last Admin: 03/11/21 00:23 Dose: 2.5 mg Documented by: Albuterol (Albuterol 0.083% 2.5 Mg/3 Ml Neb Soln) 2.5 mg NEB ONETIME PRN PRN Reason: COPD Bacitracin (Bacitracin Oint 15 Gm Tube) Confirm Administered Dose 15 gm .ROUTE .STK-MED ONE Stop: 03/11/21 03:04 Bupivacaine HCl/Epinephrine Bitart (Bupivacaine 0.5%/Epinephrine 1:200,000 50 Ml Mdv) Confirm Administered Dose 50 ml .ROUTE .STK-MED ONE Stop: 03/11/21 00:46 Last Admin: 03/11/21 01:28 Dose: 5 ml Documented by: Dexamethasone (Dexamethasone 4 Mg/Ml 5 Ml Mdv) Confirm Administered Dose 20 mg .ROUTE .STK-MED ONE Stop: 03/11/21 00:33 Diphenhydramine HCl (Diphenhydramine 50 Mg/Ml Sdv) 25 mg IVPUSH Q6H PRN PRN Reason: pruritis Ephedrine Sulfate (Ephedrine 50 Mg/Ml Sdv) 5 mg IVPUSH ASDIRECTED PRN PRN Reason: Hypotension Ephedrine Sulfate (Ephedrine 50 Mg/Ml Sdv) Confirm Administered Dose 50 mg .ROUTE .STK-MED ONE Stop: 03/11/21 02:31 Famotidine (Famotidine 20 Mg/2 Ml Sdv) 20 mg IVPUSH BID [facility] Last Admin: 03/14/21 08:30 Dose: 20 mg Documented by: Fentanyl (Fentanyl 250 Mcg/5 Ml Sdv) Confirm Administered Dose 250 mcg .ROUTE .STK-MED ONE Stop: 03/11/21 00:34 Fentanyl (Fentanyl 100 Mcg/2 Ml Sdv) 50 mcg IVPUSH Q20M PRN PRN Reason: Pain Glycopyrrolate (Glycopyrrolate 0.2 Mg/Ml Sdv) Confirm Administered Dose 1 mg .ROUTE .STMoviestorm-MED ONE Stop: 03/11/21 01:45 Hydromorphone HCl (Hydromorphone 0.5 Mg/0.5 Ml Syringe) 0.5 mg IVPUSH ONETIME ONE Stop: 03/10/21 21:46 Last Admin: 03/10/21 21:57 Dose: 0.5 mg Documented by: Hydromorphone HCl (Hydromorphone 0.5 Mg/0.5 Ml Syringe) 0.5 mg IVPUSH ONETIME ONE Stop: 03/10/21 22:44 Last Admin: 03/10/21 22:51 Dose: 0.5 mg Documented by: Hydromorphone HCl (Hydromorphone 0.5 Mg/0.5 Ml Syringe) 0.5 mg IVPUSH Q10M PRN PRN Reason: Pain (severe 7-10) Hydromorphone HCl (Hydromorphone 0.5 Mg/0.5 Ml Syringe) Confirm Administered Dose 0.5 mg .ROUTE .STMoviestorm-MED ONE Stop: 03/11/21 01:43 Sodium Chloride (Normal Saline) 1,000 mls @ 1,000 mls/hr IV .BOLUS STA Stop: 03/10/21 22:43 Last Admin: 03/10/21 21:56 Dose: 1,000 mls/hr Documented by: Sodium Chloride (Normal Saline) 100 mls @ 60 drops/hr IV ASDIRECTED [facility] Last Admin: 03/10/21 23:30 Dose: 60 drops/hr Documented by: Piperacillin Sod/Tazobactam (Sod 4.5 gm/ Sodium Chloride) 100 mls @ 200 mls/hr IV ONETIME ONE Stop: 03/11/21 00:16 Last Admin: 03/11/21 00:00 Dose: 200 mls/hr Documented by: Lidocaine HCl (Xylocaine-Mpf 1%) Confirm Administered Dose 4 mls @ as directed .ROUTE .STK-MED ONE Stop: 03/11/21 00:33 Lactated Ringer's (Ringers, Lactated) Confirm Administered Dose 2,000 mls @ as directed .ROUTE .STK-MED ONE Stop: 03/11/21 00:33 Lactated Ringer's (Ringers, Lactated) Confirm Administered Dose 1,000 mls @ as directed .ROUTE .STK-MED ONE Stop: 03/11/21 02:28 Lactated Ringer's (Ringers, Lactated) 1,000 mls @ 50 mls/hr IV ASDIRECTED [facility] Last Admin: 03/12/21 06:09 Dose: 75 mls/hr Documented by: Piperacillin Sod/Tazobactam (Sod 4.5 gm/ Sodium Chloride) 100 mls @ 25 mls/hr IV ONETIME ONE Stop: 03/11/21 14:59 Last Admin: 03/11/21 11:08 Dose: 25 mls/hr Documented by: Piperacillin Sod/Tazobactam (Sod 4.5 gm/ Sodium Chloride) 100 mls @ 25 mls/hr IV Q8H [facility] Last Admin: 03/14/21 04:23 Dose: 25 mls/hr Documented by: Lactated Ringer's (Ringers, Lactated) 1,000 mls @ 50 mls/hr IV ASDIRECTED [facility] Last Admin: 03/13/21 06:16 Dose: 50 mls/hr Documented by: Potassium Chloride 10 meq/ (Premix) 100 mls @ 100 mls/hr IV Q1H [facility] Stop: 03/13/21 10:59 Last Admin: 03/13/21 10:38 Dose: 100 mls/hr Documented by: Magnesium Sulfate 2 gm/ Premix 50 mls @ 25 mls/hr IV ONETIME ONE Stop: 03/14/21 09:29 Last Admin: 03/14/21 08:29 Dose: 25 mls/hr Documented by: Iopamidol (Iopamidol 612 Mg/Ml 100 Ml Bottle) 100 ml IVPUSH ONETIME ONE Stop: 03/10/21 21:54 Last Admin: 03/10/21 23:30 Dose: 100 ml Documented by: Labetalol HCl (Labetalol 100 Mg/20 Ml Mdv) Confirm Administered Dose 100 mg .ROUTE .STK-MED ONE Stop: 03/11/21 02:54 Lidocaine/Epinephrine (Lidocaine 1% With Epinephrine 1:100,000 10 Ml Mdv) Confirm Administered Dose 20 ml .ROUTE .STK-MED ONE Stop: 03/11/21 00:46 Last Admin: 03/11/21 01:28 Dose: 5 ml Documented by: Miscellaneous Medication (Phenylephrine Hcl In 0.9% Nacl 1 Mg/10 Ml Syringe) Confirm Administered Dose 1 mg .ROUTE .STK-MED ONE Stop: 03/11/21 00:33 Miscellaneous Medication (Phenylephrine Hcl In 0.9% Nacl 1 Mg/10 Ml Syringe) 0.1 mg IVPUSH Q10M PRN PRN Reason: Hypotension Mometasone Furoate/Formoterol Fumar (Formoterol/Mometasone 200-5 Mcg 8.8 Gm Inhaler) 2 puff IH BID [facility] Last Admin: 03/11/21 12:05 Dose: Not Given Documented by: Neostigmine Methylsulfate (Neostigmine Methylsulfate 5 Mg/5 Ml Syringe) Confirm Administered Dose 5 mg .ROUTE .STK-MED ONE Stop: 03/11/21 01:45 Ondansetron HCl (Ondansetron 4 Mg/2 Ml Sdv) 4 mg IVPUSH ONETIME ONE Stop: 03/10/21 21:45 Last Admin: 03/10/21 21:56 Dose: 4 mg Documented by: Ondansetron HCl (Ondansetron 4 Mg/2 Ml Sdv) Confirm Administered Dose 4 mg .ROUTE .STK-MED ONE Stop: 03/11/21 00:33 Propofol (Propofol 200 Mg/20 Ml Sdv) Confirm Administered Dose 200 mg .ROUTE .STK-MED ONE Stop: 03/11/21 00:33 Rocuronium [place] (Rocuronium 50 Mg/5 Ml Vial) Confirm Administered Dose 50 mg .ROUTE .STK-MED ONE Stop: 03/11/21 00:33 Sodium Chloride (Sodium Chloride 0.9% 10 Ml Syringe) 10 ml FLUSH [facility] Last Admin: 03/10/21 23:30 Dose: 10 ml Documented by: Sodium Phosphate (Phosphorus #1 250 Mg Tab) 500 mg PO ONETIME ONE Stop: 03/12/21 07:27 Last Admin: 03/12/21 08:18 Dose: 500 mg Documented by: - Exam General: Reports: Alert, Oriented, Cooperative Lungs: Reports: Clear to Auscultation, Normal Respiratory Effort Cardiovascular: Reports: Regular Rate, Regular Rhythm, No Murmurs GI/Abdominal Exam: Soft, No Distention, Tender (appropriately) Wound/Incisions: Reports: Healing Well, No Drainage, Drainage
== END 2021-03-14 20:10 | disposition home or self-care (01) | DRG 329 ==
LOC: JD.ED 21:26 → JD.SDS 03-11 00:36 → UNDOADMIN 03-11 03:17 → JD.ICU 03-11 03:17 → UNDODISIN 03-14 20:10
PROVIDERS: ADMIT Surgery; ATTEND Surgery
PROC: 3E1M38Z Irrigation of Peritoneal Cavity using Irrigating Substance, Percutaneous Approach (ICD-10-PCS; 2021-03-10)
PROC: 0DTF0ZZ Resection of Right Large Intestine, Open Approach (ICD-10-PCS; principal; 2021-03-11)
DX: K56.2 Volvulus (principal); K55.041 Focal (segmental) acute infarction of large intestine; K85.20 Alcohol induced acute pancreatitis without necrosis or infection; K55.9 Vascular disorder of intestine, unspecified; J41.0 Simple chronic bronchitis; E03.9 Hypothyroidism, unspecified; Z20.822 Contact with and (suspected) exposure to COVID-19; M19.90 Unspecified osteoarthritis, unspecified site; Z87.891 Personal history of nicotine dependence; Z90.710 Acquired absence of both cervix and uterus; Z79.899 Other long term (current) drug therapy
CPT/HCPCS: 36415 ×2; 43752; 44140; 44701; 71045; 74018; 74177; 80053; 80307; 81001; 83605; 83690; 85025; 85610; 93005; 94640; 96374; 96375; 96376; 99285; A9270; J1100; J1170 ×3; J2370; J2405 ×2; J2543; J2704; J2710; J3010; J3490 ×3; J7030; J7120 ×2; Q9967; U0002; 00840; 80048; 83735; 84100; 88307; 93010; 99100; 99140; 99284; J3475; J3480

== ENCOUNTER 2021-09-16 07:46 | Day surgery (SDC) | payer MEDICARE, BC ==
[~2021-09-16 07:46] MED LIST: Lactated Ringers 1,000 ML IV SCH; Lidocaine 1%/Sod Bicarbonate in NS 8.4% 1 ML Syringe IDERM PRN; Sodium Chloride 0.9% 10 ML Syringe FLUSH PRN
--- NOTE | 2021-09-16 08:44 | PCM.PREANE ---
Preanesthetic Assessment - Procedure Proposed Procedure: laparascopic inguinal hernia repair with mesh - Anesthesia/Transfusion/Family Hx Anesthesia History: Prior Anesthesia Without Reaction Family History of Anesthesia Reaction: No Transfusion History: No Prior Transfusion(s) Intubation History: Unknown - Review of Systems General: No Symptoms Pulmonary: Cough (copd) Cardiovascular: No Symptoms Gastrointestinal: No Symptoms Neurological: No Symptoms Other: Reports: Thyroid Problems, Depression, Anxiety - Physical Assessment NPO Status Date: 09/15/21 NPO Status Time: 21:00 Vital Signs: 133/71 82 95% Height: 5 ft Weight: 48 kg ASA Class: 3 Mental Status: Alert & Oriented x3 Airway Class: Mallampati = 1 Dentition: Reports: Dentures (top and bottom) Thyro-Mental Finger Breadths: 3 Mouth Opening Finger Breadths: 3 ROM/Head Extension: Full Lungs: Clear to Auscultation, Normal Respiratory Effort Cardiovascular: Regular Rate, Regular Rhythm - Allergies Allergies/Adverse Reactions: Allergies Allergy/AdvReac Type Severity Reaction Status Date / Time No Known Allergies Allergy Verified 09/11/21 08:48 - Blood Blood Available: No - Acknowledgements Anesthesia Type Planned: General Anesthesia Pt an Appropriate Candidate for the Planned Anesthesia: Yes Alternatives and Risks of Anesthesia Discussed w Pt/Guardian: Yes Pt/Guardian Understands and Agrees with Anesthesia Plan: Yes PreAnesthesia Questionnaire HEENT History: Reports: Allergic Rhinitis, Impaired Vision Other HEENT History: wears glasses, has dentures Cardiovascular History: Reports: None Respiratory History: Reports: Asthma, Bronchitis, Recurrent, COPD, SOB, Other (See Below) Other Respiratory History: centrilobular emphysema, lung nodules Gastrointestinal History: Reports: Colon Polyp, Helicobacter Pylori, Other (See Below) Other Gastrointestinal History: pancreatitis, colon volvulus, LLQ pain 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: Musculoskeletal History: Reports: Arthritis, Gout, RA Neurological History: Reports: None Psychiatric History: Reports: Anxiety, Depression Endocrine/Metabolic History: Reports: Hypothyroidism, Osteopenia, Vitamin D Deficiency, Other (See Below) Other Endocrine/Metabolic History: thyroid nodules Hematologic History: Reports: None Immunologic History: Reports: None Oncologic (Cancer) History: Reports: None Dermatologic History: Reports: Other (See Below) Other Dermatologic History: right cheek sebaceous cyst excision, left arm cyst excision - Infectious Disease History Infectious Disease History: Reports: None - Past Surgical History Head Surgeries/Procedures: Reports: None HEENT Surgical History: Reports: None, Tonsillectomy Cardiovascular Surgical History: Reports: None Respiratory Surgical History: Reports: None GI Surgical History: Reports: Colonoscopy, Hernia, Inguinal, Hernia Repair/Other, Other (See Below) Other GI Surgeries/Procedures: exploratory laparotomy Female Surgical History: Reports: Hysterectomy Male Surgical History: Reports: None Endocrine Surgical History: Reports: None Neurological Surgical History: Reports: None Musculoskeletal Surgical History: Reports: None Oncologic Surgical History: Reports: Bone Marrow Aspiration - SUBSTANCE USE Tobacco Use Status *Q: Former Tobacco User (quit 5 years ago) Tobacco Use Within Last Twelve Months: No Second Hand Smoke Exposure: No Days Per Week of Alcohol Use: 1 Recreational Drug Use History: No - HOME MEDS Home Medications: Home Meds allopurinoL [Zyloprim] 100 mg PO DAILY 05/03/14 [History] Hydroxychloroquine [Plaquenil] 200 mg PO DAILY 03/11/21 [History] Levothyroxine [Synthroid] 88 mcg PO ACBREAKFAST 03/11/21 [History] Methotrexate 7.5 mg PO WEEKLY 03/11/21 [History] Montelukast [Singulair] 10 mg PO BEDTIME 03/11/21 [History] Roflumilast [Daliresp] 500 mcg PO DAILY 03/11/21 [History] Tiotropium [place] [Spiriva Respimat] 2 puff PO DAILY 03/11/21 [History] Venlafaxine HCl [Venlafaxine ER] 75 mg PO DAILY 03/11/21 [History] Albuterol [Ventolin HFA] 2 puff INH Q3H PRN 09/11/21 [History] Ascorbic Acid [Vitamin C] 250 mg PO DAILY 09/11/21 [History] Calcium Carbonate/Vitamin D3 [Os-Nirmal 500+D] 1 tab PO DAILY 09/11/21 [History] Fluticasone Propion/Salmeterol [Advair 250-50 Diskus] 1 puff INH BID 09/11/21 [History] Folic Acid 1 mg PO DAILY 09/11/21 [History] Gentamicin [Gentak 0.3% Ophth Oint] 1 dose EYEBOTH ASDIRECTED PRN 09/11/21 [History] Levothyroxine Sodium [Levothyroxine] 75 mcg PO DAILY 09/11/21 [History] Methylcellulose [Fiber Therapy] 1,000 mg PO DAILY 09/11/21 [History] Multivitamin 1 tab PO DAILY 09/11/21 [History] Zoledronic Acid in Water [Reclast] 1 dose IV ASDIRECTED 09/11/21 [History] - CURRENT (IN HOUSE) MEDS Current Meds: Current Medications Lactated Ringer's (Ringers, Lactated) 1,000 mls @ 125 mls/hr IV ASDIRECTED MITCHELL Stop: 09/16/21 23:00 Lidocaine/Sodium Bicarbonate (Lidocaine 1%/Sod Bicarbonate In Ns 8.4% 1 Ml Syringe) 0.25 ml IDERM ONETIME PRN PRN Reason: Prior to IV Start Stop: 09/16/21 18:00 Sodium Chloride (Sodium Chloride 0.9% 10 Ml Syringe) 10 ml FLUSH ASDIRECTED PRN PRN Reason: Keep Vein Open Stop: 09/16/21 18:00 Discontinued Medications Albuterol/Ipratropium (Albuterol/Ipratropium 3.0-0.5 Mg/3 Ml Neb Soln) 3 ml NEB ONETIME ONE Stop: 09/16/21 09:31
[2021-09-16] MEDS ORDERED: Propofol 200 MG/20 ML SDV ONE (09:00)
[2021-09-16] MEDS ORDERED: fentaNYL 250 MCG/5 ML SDV ONE (09:00)
[2021-09-16] MEDS ORDERED: Midazolam 1 MG/ML 2 ML SDV ONE (09:00)
[2021-09-16] MEDS ORDERED: ceFAZolin 1 GM Vial ONE (09:03)
[2021-09-16] MEDS ORDERED: Lidocaine 1% 4 ML ONE (09:03)
[2021-09-16] MEDS ORDERED: Rocuronium 50 MG/5 ML Vial ONE (09:04)
[2021-09-16] MEDS ORDERED: Albuterol/Ipratropium 3.0-0.5 MG/3 ML Neb Soln NEB ONE ×2 (09:30→12:26)
[2021-09-16] MEDS: Bupivacaine 0.5% 30 ML SDV ONE ×2 (09:49→10:09)
[2021-09-16] MEDS ORDERED: Lactated Ringers 1,000 ML ONE (10:03)
[2021-09-16] MEDS ORDERED: fentaNYL 100 MCG/2 ML SDV IVPUSH PRN (10:54)
[2021-09-16] MEDS ORDERED: HYDROmorphone 0.5 MG/0.5 ML Syringe IVPUSH PRN (10:54)
[2021-09-16] MEDS ORDERED: Dexamethasone 4 MG/ML 5 ML MDV ONE (11:08)
[2021-09-16] MEDS ORDERED: Ondansetron 4 MG/2 ML SDV ONE (11:08)
[2021-09-16] MEDS ORDERED: HYDROmorphone 0.5 MG/0.5 ML Syringe ONE (11:59)
--- NOTE | 2021-09-16 12:24 | PCM.POSTAN ---
POST ANESTHESIA ASSESSMENT - MENTAL STATUS Mental Status: Somnolent - VITAL SIGNS Vital Signs: Last Vital Signs Temp 98.4 F 09/16/21 12:06 Pulse 82 09/16/21 08:00 Resp 17 09/16/21 12:06 BP 176/75 H 09/16/21 12:06 Pulse Ox 97 09/16/21 12:06 - RESPIRATORY Respiratory Status: Respiratory Rate WNL, Airway Patent, O2 Saturation Stable, Supplemental Oxygen - CARDIOVASCULAR CV Status: Pulse Rate WNL, Elevated Blood Pressure - GASTROINTESTINAL GI Status: No Symptoms - PAIN Pain Score: 2 - POST OP HYDRATION Hydration Status: Adequate & Stable
--- NOTE | 2021-09-16 12:56 | OR ---
DATE OF OPERATION: 09/16/2021 SURGEON: Chela Tafoya MD PREOPERATIVE DIAGNOSIS: Recurrent right inguinal hernia. POSTOPERATIVE DIAGNOSIS: Right recurrent femoral hernia. OPERATION PERFORMED: Laparoscopic right femoral hernia repair with mesh. ESTIMATED BLOOD LOSS: Minimal. ANESTHESIA: General endotracheal with local consisting of 0.5% Marcaine without epinephrine. COMPLICATIONS: None. NEED FOR ASSISTANCE: Skilled assistance of nurse practitioner, Alyssa Mancera CNP was provided today. She assisted with patient positioning, holding the laparoscopic camera during the procedure as well as with incision closure at the end of the procedure. Her assistance was needed for safety and efficiency of the procedure. INDICATION AND CONSENT: Ms. Narayan is 76. She has had right inguinal hernia for several years. However, in the past 6 months, it has been bothering her, causing pain and especially in the last 2 to 3 months, it has been causing more severe pain, symptoms of nausea without vomiting and malaise at times. The patient presented to me. I evaluated her and noted that she has a recurrent right inguinal hernia, likely a femoral hernia and I recommended to proceed with surgery. The patient had prior open bilateral inguinal hernia repair in the past. Therefore, I recommended to proceed to laparoscopic approach. We discussed risks, benefits, and alternatives. Informed consent was obtained. DESCRIPTION OF PROCEDURE: The patient was taken to the procedure area, and in the operating room, placed in supine position and padded appropriately. A Rhea Hugger was placed. An OG tube was placed and then the abdomen was prepped and draped in the usual sterile fashion. Ancef preop antibiotic was given. A time-out was performed and procedure was began. The patient had prior laparotomies, one low midline incision and another one was traditional laparotomy. Therefore, we proceeded with placement of a Veress needle in the trujillo's point and insufflating the abdomen to 15 mmHg. Then, a 5 mm trocar was placed with laparoscopic visualization in the left lateral abdomen at the level of the umbilicus. The abdomen was entered and inspected. There was small liver injury due to Veress needle placement with minor bleeding. No other injuries due to Veress needle or trocar placement were noted. Below the umbilicus, there were no adhesions to the abdominal wall; however, above the umbilicus, there were some omental adhesions to the abdominal wall and these were left alone since they went away from the operative site. Then, at this point, we placed a 12 mm trocar at the infraumbilical area and another 5 in the right lateral abdomen at the same level of the umbilicus. The patient was placed in slight Trendelenburg position and we clearly noted that there was a femoral hernia that had some small amount of fluid, but there was no incarceration at the time of the operation. We began by creating a flap consisting of the transversalis fascia with parietal peritoneum. We started with medial dissection until the pubic tubercle was cleared and then lateral dissection was carried out isolating the femoral hernia and then we started taking down the femoral hernia. There were some dense adhesions around the femoral hernia likely due to prior repair. These were taken down sharply with Bovie electrosurgery as well as bluntly with graspers. Care was taken not to injure the femoral hernia and its tributaries. Slowly, we were able to reduce the femoral hernia completely and we took the peritoneum proximally way down about 5 to 6 cm to allow placement of the mesh. Once this area was cleared, our dissection was done. A 10.3 x 15.7 cm 3DMax Light mesh was, this was right sided, brought into the field and opened and was placed at the dissection site. The mesh was anchored medially at the Benson's ligament with 1 tack using SorbaFix and another absorbable tack was placed laterally above the ASIS. Once this was done, the mesh was lying down very well. The abdomen insufflation was reduced to 10 and the peritoneum was reapproximated to the abdominal wall using several tacks. Then, upon inspection of the parietal peritoneum, we noted that there was about 3 cm hole. Therefore, decision was made to proceed with closure of this hole. The 2-0 Vicryl was brought into the field and the [id number] was placed laparoscopically to close the hole, and once this was done, 10 mL of local anesthetic was placed into the dissection area and we went ahead and closed the infraumbilical incision at the fascia using 0 Vicryl stitches using Campos- Quezada device. Then, we inspected the abdomen once again. There were no other abnormalities and everything else appeared to be good. The abdomen was insufflated and the trocar was removed. All incision sites, the rest of the incisions and the infraumbilical incision were closed at the skin level with 4-0 Monocryl and Dermabond was placed. The patient tolerated the procedure well. The patient will be awoken, extubated, and returned home today if she does well. The patient to come to clinic to follow up with me in 2 weeks. MMHEIDI /[id number] MTDD
--- NOTE | 2021-09-16 14:16 | PCM48HPAN ---
Post Anesthesia Note - EVALUATION WITHIN 48HRS OF ANESTHETIC Vital Signs in Normal Range: Yes Patient Participated in Evaluation: Yes Respiratory Function Stable: Yes Airway Patent: Yes Cardiovascular Function Stable: Yes Hydration Status Stable: Yes Pain Control Satisfactory: Yes Nausea and Vomiting Control Satisfactory: Yes Mental Status Recovered: Yes Vital Signs: Last Vital Signs Temp 98.4 F 09/16/21 12:06 Pulse 87 09/16/21 12:30 Resp 10 L 09/16/21 13:00 BP 133/60 09/16/21 13:00 Pulse Ox 96 09/16/21 13:00 - COMMENTS/OBSERVATIONS Free Text/Narrative:: Patient is being weaned off O2. Instructions to use IS at home and SPO2 checks.
[2021-09-16] MEDS ORDERED: Acetaminophen/HYDROcodone 325-5 MG Tab PO ONE (14:30)
== END 2021-09-16 16:50 | disposition home or self-care (01) ==
LOC: JD.SDS 07:46
PROVIDERS: ATTEND Surgery
DX: K41.91 Unilateral femoral hernia, without obstruction or gangrene, recurrent (principal); J44.9 Chronic obstructive pulmonary disease, unspecified; M06.9 Rheumatoid arthritis, unspecified; E03.9 Hypothyroidism, unspecified; M10.9 Gout, unspecified; Z98.890 Other specified postprocedural states; Z79.899 Other long term (current) drug therapy; Z88.8 Allergy status to other drugs, medicaments and biological substances; Z79.890 Hormone replacement therapy; Z87.891 Personal history of nicotine dependence
CPT/HCPCS: A9270-GY; J0690; J1100; J1170; J2250; J2370; J2405; J2704; J3010; J3490; J7120; J7620-GY

== ENCOUNTER 2024-06-11 18:15 | Emergency (ER) | payer MEDICARE, BC ==
[2024-06-11 19:32] LABS: BASOPHILS ABSOLUTE AUTO 0.1 K/mm3 (0.0-0.2); BASOPHILS PERCENT AUTO 1.1 % (0.0-1.0); EOSINOPHILS ABSOLUTE AUTO 0.2 K/mm3 (0.0-0.4); EOSINOPHILS PERCENT AUTO 2.1 % (0.0-6.0); HEMATOCRIT 35.4 % (37.0-47.0); HEMOGLOBIN 11.8 gm/dl (12.0-16.0); IMMATURE GRAN ABSOLUTE AUTO 0.03 K/mm3 (0.00-0.05); IMMATURE GRAN PERCENT AUTO 0.4 % (0.0-0.4); LYMPHOCYTES ABSOLUTE AUTO 1.3 K/mm3 (1.0-4.8); MEAN CORPUSCULAR HEMOGLOBIN 33.3 pg (28.0-32.0); MEAN CORPUSCULAR HGB CONC 33.3 g/dl (32.0-36.0); MEAN PLATELET VOLUME 9.8 fl (9.4-12.3); MONOCYTES ABSOLUTE AUTO 0.8 K/mm3 (0.0-0.8); MONOCYTES PERCENT AUTO 9.5 % (0.0-8.0); NEUTROPHILS ABSOLUTE AUTO 6.2 K/mm3 (1.8-7.7); NEUTROPHILS PERCENT AUTO 71.9 % (41.0-71.0); PLATELET COUNT,PLT 296 K/mm3 (150-400); RED BLOOD CELL COUNT 3.54 M/mm3 (4.10-5.30); WHITE BLOOD CELL COUNT,WBC 8.56 K/mm3 (3.9-11.3)
[2024-06-11 19:53] LABS: ALBUMIN 3.4 g/dl (3.4-5.0); ANION GAP 16.1 (5-15); BILIRUBIN TOTAL 0.4 mg/dL (0.2-1.0); C-REACTIVE PROTEIN 1.92 mg/dL (<0.30); CALCIUM 11.8 mg/dL (8.5-10.1); EST CRCL DRUG DOSING (CG) 36.19 mL/min; ETHANOL BLOOD MEDICAL 0.2 gm% (0.00); MAGNESIUM 1.2 mg/dL (1.8-2.4); POTASSIUM,K 4.1 mEq/L (3.5-5.1); PROTEIN TOTAL,TP 6.8 g/dl (6.4-8.2)
[2024-06-11 20:05] LABS: LACTIC ACID 5.1 mmol/L (0.4-2.0)
[2024-06-11] MEDS: Bacitracin Oint 15 GM Tube TOP ONE (20:35)
[2024-06-11] MEDS: Diphtheria,Pertussis(Acell),Tetanus Vaccine 0.5 ML Syringe IM ONE (20:35)
[2024-06-11] MEDS: Acetaminophen 325 MG Tab PO ONE (20:36)
[2024-06-11] MEDS: Sodium Chloride 0.9% 1,000 ML IV ONE (20:38)
[2024-06-11 21:58] LABS: APPEARANCE,URINE CLEAR (Clear); BILIRUBIN,URINE NEGATIVE (Negative); COLOR,URINE YELLOW (Yellow); GLUCOSE,URINE NEGATIVE (Negative); KETONES,URINE NEGATIVE (Negative); LEUKOCYTE ESTERASE,URINE TRACE (Negative); NITRITE,URINE NEGATIVE (Negative); OCCULT BLOOD,URINE NEGATIVE (Negative); PROTEIN,URINE NEGATIVE (Negative); UROBILINOGEN,URINE 0.2 (0.2-1.0)
[2024-06-11 22:09] LABS: BARBITURATE SCREEN,URINE NEGATIVE (CUTOFF=200); BENZODIAZEPINES SCREEN,URINE NEGATIVE (CUTOFF=150); BUPRENORPHINE SCREEN,URINE NEGATIVE (CUTOFF=10); METHADONE SCREEN, URINE NEGATIVE (CUTOFF=200); METHAMPHETAMINES SCREEN, URINE NEGATIVE (CUTOFF=500); OXYCODONE SCREEN,URINE NEGATIVE (CUT0FF=100); THC SCREEN,URINE 20 NG/ML NEGATIVE (CUTOFF=50)
[2024-06-11 22:11] LABS: BACTERIA,URINE FEW /hpf (FEW); MUCUS,URINE NOT SEEN /hpf (FEW); RBC,URINE 0-5 /hpf (0-5); SQUAMOUS EPITHELIAL CELLS,UR 0-5 /hpf (0-5)
[2024-06-11 22:15] LABS: AMPHETAMINES SCREEN, URINE NEGATIVE (CUTOFF=500)
[2024-06-11] MEDS ORDERED: Cefdinir 300 MG Cap PO ONE (22:22)
== END 2024-06-11 23:39 | disposition home or self-care (01) ==
LOC: JD.ED 18:15
DX: S50.312A Abrasion of left elbow, initial encounter (principal); F10.920 Alcohol use, unspecified with intoxication, uncomplicated; N30.00 Acute cystitis without hematuria; J45.909 Unspecified asthma, uncomplicated; E03.9 Hypothyroidism, unspecified; Z90.710 Acquired absence of both cervix and uterus; Z87.891 Personal history of nicotine dependence; Z79.899 Other long term (current) drug therapy; Z79.890 Hormone replacement therapy; Z23 Encounter for immunization; W18.30XA Fall on same level, unspecified, initial encounter
CPT/HCPCS: 36415; 80053; 80306; 80307; 81001; 83605; 83735; 85025; 86140; 87086; 90471; 90715; 96360; 99283; 99284-25; A9270-GY; J7030

== ENCOUNTER 2024-06-15 09:09 | Day surgery (SDC) | payer MEDICARE, BC ==
[~2024-06-15 09:09] MED LIST changes: +HYDROmorphone 0.5 MG/0.5 ML Syringe IVPUSH PRN; -Lidocaine 1%/Sod Bicarbonate in NS 8.4% 1 ML Syringe IDERM PRN; +Ondansetron 4 MG/2 ML SDV IVPUSH PRN; +Sodium Chloride 0.9% 10 ML Syringe FLUSH SCH; +fentaNYL 100 MCG/2 ML SDV IVPUSH PRN
[2024-06-15] MEDS: Lactated Ringers 1,000 ML IV SCH (09:20)
[2024-06-15] MEDS ORDERED: Propofol 200 MG/20 ML SDV ONE ×4 (10:20→10:57)
== END 2024-06-15 11:55 | disposition home or self-care (01) ==
LOC: JD.SDS 09:09
PROVIDERS: ATTEND Surgery
DX: Z12.11 Encounter for screening for malignant neoplasm of colon (principal); K63.5 Polyp of colon; K57.30 Diverticulosis of large intestine without perforation or abscess without bleeding; K64.8 Other hemorrhoids; I49.49 Other premature depolarization; Z86.010 Personal history of colon polyps; J45.909 Unspecified asthma, uncomplicated; Z79.899 Other long term (current) drug therapy; Z79.890 Hormone replacement therapy; Z87.891 Personal history of nicotine dependence
CPT/HCPCS: G0105; J2704; J7120

== ENCOUNTER 2025-08-10 06:32 | Inpatient (IN) | payer MEDICARE, BC ==
[2025-08-10] MEDS ORDERED: Sodium Chloride 0.9% 10 ML Syringe FLUSH PRN (06:46)
[2025-08-10 07:13] LABS: BASOPHILS ABSOLUTE AUTO 0.1 K/mm3 (0.0-0.2); BASOPHILS PERCENT AUTO 0.3 % (0.0-1.0); EOSINOPHILS ABSOLUTE AUTO 0.0 K/mm3 (0.0-0.4); EOSINOPHILS PERCENT AUTO 0.1 % (0.0-6.0); IMMATURE GRAN ABSOLUTE AUTO 0.23 K/mm3 (0.00-0.05); IMMATURE GRAN PERCENT AUTO 0.8 % (0.0-0.4); LYMPHOCYTES ABSOLUTE AUTO 0.7 K/mm3 (1.0-4.8); LYMPHOCYTES PERCENT AUTO 2.6 % (24.0-44.0); MEAN PLATELET VOLUME 9.7 fl (9.4-12.3); MONOCYTES ABSOLUTE AUTO 1.1 K/mm3 (0.0-0.8); MONOCYTES PERCENT AUTO 4.0 % (0.0-8.0); NEUTROPHILS ABSOLUTE AUTO 25.6 K/mm3 (1.8-7.7); NEUTROPHILS PERCENT AUTO 92.2 % (41.0-71.0); NRBC ABSOLUTE 0.00 (0.00-0.02); NRBC PERCENT 0.0 % (0.0-0.2); PLATELET COUNT,PLT 281 K/mm3 (150-400); RED BLOOD CELL COUNT 3.71 M/mm3 (4.10-5.30); WHITE BLOOD CELL COUNT,WBC 27.75 K/mm3 (3.9-11.3)
[2025-08-10] MEDS: Acetaminophen/oxyCODONE 325-5 MG Tab PO ONE ×2 (07:15→10:34)
[2025-08-10 07:55] LABS: A/G RATIO 0.8 (1-2); ALANINE AMINOTRANSFERASE,ALT 46.0 U/L (14-59); ASPARTATE AMNIOTRANSFERASE,AST 46.0 U/L (15-37); BILIRUBIN TOTAL 0.7 mg/dL (0.2-1.0); BLOOD UREA NITROGEN,BUN 15.0 mg/dL (7-18); CARBON DIOXIDE,CO2 30.0 mEq/L (21-32); CHLORIDE,CL 94.0 mEq/L (98-107); CREATININE 0.9 mg/dL (0.55-1.02); EST CRCL DRUG DOSING (CG) 36.41 mL/min; ESTIMATED GFR 65.0 mL/min (>60); GLUCOSE RANDOM 110.0 mg/dL (70-99); POTASSIUM,K 4.1 mEq/L (3.5-5.1); PROTEIN TOTAL,TP 6.9 g/dl (6.4-8.2); SODIUM,NA 135.0 mEq/L (136-145)
[2025-08-10] MEDS: cefTRIAXone 1 GM in Water For Injection, Sterile 10 ML IVPUSH STA (09:41)
[2025-08-10] MEDS ORDERED: Ondansetron 4 MG/2 ML SDV IV PRN (11:21)
[2025-08-10] MEDS ORDERED: Ondansetron 4 MG Tab.DIS PO PRN (11:21)
[2025-08-10] MEDS ORDERED: Albuterol 0.083% 2.5 MG/3 ML Neb Soln NEB PRN (11:21)
[2025-08-10] MEDS: guaiFENesin/Dextromethorphan 100-10 MG/5 ML Soln 5 ML Cup PO SCH (14:11)
[2025-08-10] MEDS: FLU (Fluad Triv) 25-26 (65UP)/MF59C/PF 45 MCG/0.5 ML Syringe IM ONE (14:12)
[2025-08-10] MEDS ORDERED: NITROFURANTOIN MACROCRYSTAL 100 MG PO SCH (21:00)
[2025-08-10] MEDS: Formoterol/Mometasone 200-5 MCG 8.8 GM Inhaler INH SCH (21:13)
[2025-08-11 04:22] LABS: BASOPHILS ABSOLUTE AUTO 0.1 K/mm3 (0.0-0.2); BASOPHILS PERCENT AUTO 0.5 % (0.0-1.0); EOSINOPHILS ABSOLUTE AUTO 0.1 K/mm3 (0.0-0.4); EOSINOPHILS PERCENT AUTO 0.8 % (0.0-6.0); IMMATURE GRAN ABSOLUTE AUTO 0.10 K/mm3 (0.00-0.05); IMMATURE GRAN PERCENT AUTO 0.6 % (0.0-0.4); LYMPHOCYTES ABSOLUTE AUTO 1.1 K/mm3 (1.0-4.8); LYMPHOCYTES PERCENT AUTO 6.4 % (24.0-44.0); MEAN PLATELET VOLUME 10.2 fl (9.4-12.3); MONOCYTES ABSOLUTE AUTO 0.9 K/mm3 (0.0-0.8); MONOCYTES PERCENT AUTO 5.1 % (0.0-8.0); NEUTROPHILS ABSOLUTE AUTO 14.9 K/mm3 (1.8-7.7); NEUTROPHILS PERCENT AUTO 86.6 % (41.0-71.0); NRBC ABSOLUTE 0.00 (0.00-0.02); NRBC PERCENT 0.0 % (0.0-0.2); PLATELET COUNT,PLT 252 K/mm3 (150-400); RED BLOOD CELL COUNT 3.48 M/mm3 (4.10-5.30); WHITE BLOOD CELL COUNT,WBC 17.22 K/mm3 (3.9-11.3)
[2025-08-11 04:46] LABS: A/G RATIO 0.7 (1-2); ALANINE AMINOTRANSFERASE,ALT 31 U/L (14-59); ASPARTATE AMNIOTRANSFERASE,AST 26 U/L (15-37); BILIRUBIN TOTAL 0.3 mg/dL (0.2-1.0); BLOOD UREA NITROGEN,BUN 13 mg/dL (7-18); CARBON DIOXIDE,CO2 28 mEq/L (21-32); CHLORIDE,CL 100 mEq/L (98-107); CREATININE 0.8 mg/dL (0.55-1.02); EST CRCL DRUG DOSING (CG) 40.96 mL/min; ESTIMATED GFR 75 mL/min (>60); GLUCOSE RANDOM 120 mg/dL (70-99); POTASSIUM,K 3.7 mEq/L (3.5-5.1); PROTEIN TOTAL,TP 6.4 g/dl (6.4-8.2); SODIUM,NA 138 mEq/L (136-145)
[2025-08-11] MEDS: cefTRIAXone 1 GM in Water For Injection, Sterile 10 ML IVPUSH SCH (08:05)
[2025-08-11] MEDS: Magnesium Sulfate 2 GM/50 mL 2 GM in Premix Bag 1 BAG IV ONE (08:06)
[2025-08-11] MEDS: Venlafaxine 75 MG Cap.ER PO SCH (08:06)
[2025-08-11] MEDS: Tiotropium Bromide 4 GM Inhalation Spray (2.5mcg/1 dose; 10 doses) INH SCH (08:47)
[2025-08-11] MEDS ORDERED: ANASTROZOLE 1 MG PO SCH (09:00)
[2025-08-11] MEDS ORDERED: ROFLUMILAST 500 MCG PO SCH (09:00)
[2025-08-11] MEDS ORDERED: VENLAFAXINE 150 MG PO SCH (09:00)
[2025-08-12 05:47] LABS: BASOPHILS ABSOLUTE AUTO 0.0 K/mm3 (0.0-0.2); BASOPHILS PERCENT AUTO 0.5 % (0.0-1.0); EOSINOPHILS ABSOLUTE AUTO 0.3 K/mm3 (0.0-0.4); EOSINOPHILS PERCENT AUTO 3.7 % (0.0-6.0); IMMATURE GRAN ABSOLUTE AUTO 0.03 K/mm3 (0.00-0.05); IMMATURE GRAN PERCENT AUTO 0.4 % (0.0-0.4); LYMPHOCYTES ABSOLUTE AUTO 1.1 K/mm3 (1.0-4.8); LYMPHOCYTES PERCENT AUTO 15.0 % (24.0-44.0); MEAN PLATELET VOLUME 9.8 fl (9.4-12.3); MONOCYTES ABSOLUTE AUTO 0.6 K/mm3 (0.0-0.8); MONOCYTES PERCENT AUTO 8.7 % (0.0-8.0); NEUTROPHILS ABSOLUTE AUTO 5.3 K/mm3 (1.8-7.7); NEUTROPHILS PERCENT AUTO 71.7 % (41.0-71.0); NRBC ABSOLUTE 0.00 (0.00-0.02); NRBC PERCENT 0.0 % (0.0-0.2); PLATELET COUNT,PLT 269 K/mm3 (150-400); RED BLOOD CELL COUNT 3.50 M/mm3 (4.10-5.30); WHITE BLOOD CELL COUNT,WBC 7.35 K/mm3 (3.9-11.3)
[2025-08-12 06:26] LABS: A/G RATIO 0.7 (1-2); ALANINE AMINOTRANSFERASE,ALT 30.0 U/L (14-59); ASPARTATE AMNIOTRANSFERASE,AST 18.0 U/L (15-37); BILIRUBIN TOTAL 0.2 mg/dL (0.2-1.0); BLOOD UREA NITROGEN,BUN 12.0 mg/dL (7-18); CARBON DIOXIDE,CO2 28.0 mEq/L (21-32); CHLORIDE,CL 103.0 mEq/L (98-107); CREATININE 0.7 mg/dL (0.55-1.02); EST CRCL DRUG DOSING (CG) 46.81 mL/min; ESTIMATED GFR 88.0 mL/min (>60); GLUCOSE RANDOM 103.0 mg/dL (70-99); POTASSIUM,K 3.5 mEq/L (3.5-5.1); PROTEIN TOTAL,TP 6.3 g/dl (6.4-8.2); SODIUM,NA 139.0 mEq/L (136-145)
== END 2025-08-12 11:08 | disposition home or self-care (01) | DRG 193 ==
LOC: JD.ED 06:32 → JD.MS 08:56
PROVIDERS: ADMIT Family Medicine; ATTEND Family Medicine
DX: J15.7 Pneumonia due to Mycoplasma pneumoniae (principal); J96.21 Acute and chronic respiratory failure with hypoxia; J44.0 Chronic obstructive pulmonary disease with (acute) lower respiratory infection; N39.0 Urinary tract infection, site not specified; Z66 Do not resuscitate; E83.42 Hypomagnesemia; R53.81 Other malaise; M10.9 Gout, unspecified; M06.9 Rheumatoid arthritis, unspecified; F41.9 Anxiety disorder, unspecified; F32.A Depression, unspecified; J18.9 Pneumonia, unspecified organism; F10.10 Alcohol abuse, uncomplicated; J41.0 Simple chronic bronchitis; J30.9 Allergic rhinitis, unspecified; H54.7 Unspecified visual loss; M85.80 Other specified disorders of bone density and structure, unspecified site; E55.9 Vitamin D deficiency, unspecified; Z98.890 Other specified postprocedural states; Z99.81 Dependence on supplemental oxygen; M79.10 Myalgia, unspecified site; Z85.3 Personal history of malignant neoplasm of breast; Z87.891 Personal history of nicotine dependence; R54 Age-related physical debility; E03.9 Hypothyroidism, unspecified; Z79.890 Hormone replacement therapy; Z79.899 Other long term (current) drug therapy
CPT/HCPCS: 36415; 71045; 80053; 83605; 83735; 85025; 86738; 87428; 99285; A9270; 86140; 87040; 87899; 90653; 94640; 94667; 94668; 94761; 97112-GP; 97116-GP; 97161-GP; 97166-GO; 97535-GO; J0456; J0696; J1650; J3475; J7050